=== PATIENT | male | born 1980 | race Two or more races ===

== ENCOUNTER 2022-02-04 21:22 | Emergency (ER) | payer MEDICAID ==
[~2022-02-04] VITALS: Ht 172.7 cm; Wt 77.8 kg
[2022-02-04 21:22] VITALS: BP 142/85
[2022-02-04] MEDS ORDERED: ACYCLOVIR 400 MG TAB PO ONE (22:30)
[2022-02-04] MEDS ORDERED: predniSONE 20 MG TAB PO ONE (22:30)
[2022-02-04 22:51] LABS: Basophils # (auto) 0 10 ^3/uL (0-0.2); Basophils % (auto) 0.5 % (0.0-2.0); Eosinophils # (auto) 0.1 10 ^3/uL (0-0.8); Eosinophils % (auto) 0.9 % (0.0-7.0); Hematocrit 40.6 % (41.0-53.0); Hemoglobin 13.8 g/dL (13.5-17.5); Lymphocytes # (auto) 2.1 10 ^3/uL (0.4-5.4); Lymphocytes % (auto) 37.5 % (10.0-50.0); Mean Corpuscular Hemoglobin 29.8 pg (28.0-32.0); Mean Corpuscular Volume 87.7 fL (80.0-100.0); Monocytes # (auto) 0.6 10 ^3/uL (0-1.3); Neutrophils # (auto) 2.9 10 ^3/uL (1.6-8.6); Neutrophils % (auto) 51.1 % (37.0-80.0); Nucleated Red Blood Cells % 0.3 %; Red Blood Cells 4.63 10^6/uL (4.5-5.90); Red Cell Distribution Width 13.1 % (11.8-14.3); White Blood Cell 5.7 10^3/uL (4.4-10.8)
[2022-02-04] MEDS ORDERED: ACYC-163 PO (23:06)
[2022-02-04] MEDS ORDERED: PRED20TA2 PO (23:06)
[2022-02-05 00:48] LABS: Albumin 3.4 g/dL (3.4-5.0); Bilirubin, Total 0.3 mg/dL (0.2-1.0); CRP High Sensitivity 0.23 mg/dL (< 0.3); Calcium 8.4 mg/dL (8.5-10.1); Magnesium 2.1 mg/dL (1.6-2.6); Potassium 3.6 mmol/L (3.5-5.1); Total Protein 8.6 g/dL (6.4-8.2)
== END 2022-02-05 01:22 | disposition home or self-care (01) ==
LOC: ER 21:36
DX: G51.0 Bell's palsy (principal); Z90.49 Acquired absence of other specified parts of digestive tract
CPT/HCPCS: 36415; 70450; 80053; 83735; 85025; 86141; 99284; J7512

== ENCOUNTER 2023-05-13 10:26 | Emergency (ER) | payer MEDICAID ==
[~2023-05-13] VITALS: Ht 175.3 cm; Wt 76.4 kg
[~2023-05-13 10:26] MED LIST: ACYC1TAB2 PO; PRED20TA2 PO
[2023-05-13] MEDS ORDERED: SODIUM CHLORIDE 0.9% 1,000 ML IV ONE ×2 (11:00→16:15)
[2023-05-13 11:25] LABS: Basophils # (auto) 0 10 ^3/uL (0-0.2); Basophils % (auto) 0.3 % (0.0-2.0); Eosinophils # (auto) 0.1 10 ^3/uL (0-0.8); Eosinophils % (auto) 1.2 % (0.0-7.0); Hematocrit 49.3 % (41.0-53.0); Hemoglobin 17.3 g/dL (13.5-17.5); Lymphocytes % (auto) 37.4 % (10.0-50.0); Mean Corpuscular Hemoglobin 30.9 pg (28.0-32.0); Mean Corpuscular Volume 88.3 fL (80.0-100.0); Monocytes # (auto) 0.9 10 ^3/uL (0-1.3); Monocytes % (auto) 10.6 % (0.0-12.0); Neutrophils # (auto) 4.1 10 ^3/uL (1.6-8.6); Neutrophils % (auto) 50.5 % (37.0-80.0); Nucleated Red Blood Cells % 0.9 %; Red Blood Cells 5.58 10^6/uL (4.5-5.90); Red Cell Distribution Width 13.7 % (11.8-14.3)
[2023-05-13 11:39] LABS: Alanine Aminotransferase 118 U/L (7-40); Albumin 4.6 g/dL (3.2-4.8); Alkaline Phosphatase 85 U/L (46-116); Anion Gap 9 (5-15); Aspartate Aminotransferase 59 U/L (13-40); BUN/Creatinine Ratio 9.6 (10.0-20.0); Bilirubin, Total 0.6 mg/dL (0.2-1.0); Blood Urea Nitrogen 11 mg/dL (9-23); Calcium 9.3 mg/dL (8.5-10.1); Carbon Dioxide 22 mmol/L (20-30); Chloride 105 mmol/L (98-107); Creatine Kinase IFCC 110 U/L (46-171); Glucose 97 mg/dL (74-106); Potassium 3.7 mmol/L (3.5-5.1); Sodium 136 mmol/L (136-145); Total Protein 10.2 g/dL (5.7-8.2)
[2023-05-13] MEDS: PIPERACILLIN-TAZOB 3.375GM 100 ML IV ONE ×2 (12:23→12:29)
[2023-05-13 15:50] VITALS: BP 131/69; PULSE 103; RESP 20; TEMP 98.4; O2SAT 96
[2023-05-13 15:52] LABS: Amphetamine Screen, Urine Pos (NEGATIVE); Urine Bacteria NONE SEEN /hpf (None Seen); Urine Blood 2+ /uL (Negative); Urine Clarity Clear (Clear); Urine Color Yellow (Yellow); Urine Mucus FEW (None Seen); Urine Protein, UAD 1+ (Negative); Urine Urobilinogen Normal (Negative); Urine WBC 2 /hpf (0 - 3)
[2023-05-13 15:53] LABS: Urine Specific Gravity > 1.050 (1.001-1.035)
[2023-05-13 15:54] LABS: Barbiturate Scree,Urine Neg (NEGATIVE); Benzodiazephine Screen, Urine Neg (NEGATIVE); Cannabinoid Screen, Urine Neg (NEGATIVE); Cocaine Screen, Urine Neg (NEGATIVE); Opiate Scree,Urine Neg (NEGATIVE); Phencyclidine Screen, Urine Neg (NEGATIVE)
[2023-05-13] MEDS ORDERED: AUG875T PO (16:10)
== END 2023-05-13 18:35 | disposition left against medical advice (07) ==
LOC: ER 10:26
DX: F15.10 Other stimulant abuse, uncomplicated (principal); R06.02 Shortness of breath; Z79.899 Other long term (current) drug therapy
CPT/HCPCS: 36415; 36600; 71045; 71275; 80053; 80307; 81001; 82550; 82805; 83605; 83735; 83880; 84484; 85025; 85379; 87040; 93005; 96365; 96366; 99285; J7030

== ENCOUNTER 2023-12-23 17:04 | Emergency (ER) | payer MEDICAID ==
[~2023-12-23] VITALS: Ht 172.7 cm; Wt 76.1 kg
[~2023-12-23 17:04] MED LIST changes: +AUG875T PO
[2023-12-23 18:26] VITALS: BP 132/82; TEMP 98.3
[2023-12-23 18:27] VITALS: PULSE 106; RESP 18; O2SAT 99
[2023-12-23 19:57] LABS: Basophils # (auto) 0 10 ^3/uL (0-0.2); Basophils % (auto) 0.4 % (0.0-2.0); Eosinophils # (auto) 0.2 10 ^3/uL (0-0.8); Eosinophils % (auto) 3.9 % (0.0-7.0); Hematocrit 33.7 % (41.0-53.0); Hemoglobin 11.8 g/dL (13.5-17.5); Lymphocytes # (auto) 1.6 10 ^3/uL (0.4-5.4); Lymphocytes % (auto) 32.3 % (10.0-50.0); Mean Corpuscular Hemoglobin 31.4 pg (28.0-32.0); Mean Corpuscular Hgb Conc. 34.9 g/dL (32.0-36.0); Mean Corpuscular Volume 89.9 fL (80.0-100.0); Monocytes # (auto) 0.5 10 ^3/uL (0-1.3); Monocytes % (auto) 9.3 % (0.0-12.0); Neutrophils # (auto) 2.7 10 ^3/uL (1.6-8.6); Neutrophils % (auto) 54.1 % (37.0-80.0); Nucleated Red Blood Cells % 0.1 %; Red Blood Cells 3.75 10^6/uL (4.5-5.90); Red Cell Distribution Width 13.4 % (11.8-14.3)
[2023-12-23 20:12] LABS: Alanine Aminotransferase 25 U/L (7-40); Albumin 3.6 g/dL (3.2-4.8); Alkaline Phosphatase 76 U/L (46-116); Anion Gap 5 (5-15); Aspartate Aminotransferase 24 U/L (13-40); BUN/Creatinine Ratio 14.1 (10.0-20.0); Bilirubin, Total 0.3 mg/dL (0.2-1.0); Blood Urea Nitrogen 10 mg/dL (9-23); Calcium 9.2 mg/dL (8.7-10.4); Carbon Dioxide 27 mmol/L (20-30); Chloride 105 mmol/L (98-107); Glucose 88 mg/dL (74-106); Potassium 3.9 mmol/L (3.5-5.1); Sodium 137 mmol/L (136-145); Total Protein 7.7 g/dL (5.7-8.2)
[2023-12-23] MEDS: IOHEXOL 300 MG/ML 100ML BOTTLE IJ ONE (21:55)
[2023-12-23] MEDS: HYDROcodone-ACET 5/325MG TAB PO ONE (23:58)
== END 2023-12-24 02:18 | disposition left against medical advice (07) ==
LOC: ER 17:04
DX: R59.0 Localized enlarged lymph nodes (principal); Z98.890 Other specified postprocedural states; Z79.899 Other long term (current) drug therapy
CPT/HCPCS: 36415; 70470; 70492; 80053; 85025; 99285; Q9967

== ENCOUNTER 2024-01-30 18:45 | Emergency (ER) | payer MEDICAID ==
[~2024-01-30] VITALS: Ht 170.2 cm; Wt 79.5 kg
[2024-01-30 18:50] VITALS: BP 131/78; PULSE 130; RESP 20; O2SAT 95
== END 2024-01-30 23:11 | disposition left against medical advice (07) ==
LOC: ER 18:45 → EDBD 18:45 → ER 23:11
DX: R10.12 Left upper quadrant pain (principal); R11.2 Nausea with vomiting, unspecified; Z53.21 Procedure and treatment not carried out due to patient leaving prior to being seen by health care provider

== ENCOUNTER 2024-10-11 17:46 | Emergency (ER) | payer MEDICAID ==
[~2024-10-11] VITALS: Ht 172.7 cm; Wt 81.5 kg
[2024-10-11 18:22] VITALS: BP 120/86; PULSE 137; RESP 18; TEMP 98; O2SAT 96
== END 2024-10-11 20:28 | disposition left against medical advice (07) ==
LOC: ER 17:46
DX: R51.9 Headache, unspecified (principal); Z53.21 Procedure and treatment not carried out due to patient leaving prior to being seen by health care provider

== ENCOUNTER 2024-10-13 09:56 | Inpatient (IN) | payer MEDICAID ==
[2024-10-13] VITALS (8 sets, daily range): BP systolic 104–132; BP diastolic 68–75; PULSE 80–102; RESP 18–22; TEMP 97.5–98.1; O2SAT 93–99
[~2024-10-13] VITALS: Ht 172.7 cm; Wt 88.1 kg
--- NOTE | 2024-10-13 10:21 | ED.PDOC ---
History of Present Illness HPI Comments 44 year old male was BIBA with a PMHx of Burkitt Lymphoma and a "mass in a lung" associated to the c/c of SOB. Pt states that his SOB started approx 10x days ago with a fever, & 10/10 pressure ROY with no alleviating factors at this time. Pt notes that his vision is blurry in his R eye. Pt Denies coughing, N/V/D, Chest pain, ABD pain or other associated symptoms, modifiers, or recent injuries or sick contact that this time. Chief Complaint: Headache Time Seen by MD: 10:15 Primary Care Provider: ASHOK Reviewed Notes: Nurses Notes, Back Shoe Operator Notes, Medications, Allergies Allergies: Coded Allergies: NO KNOWN ALLERGIES (Unverified , 02/04/22) Home Meds Active Scripts Amoxicillin & Pot Clavulanate (AUGMENTIN TABLET) 875 Mg Tb, 875 MG PO BID for 7 Days, #14 TAB Prov:PAXTON HAMM DO 05/13/23 Acyclovir (Acyclovir) 400 Mg Tab, 400 MG PO 5XD for 7 Days, #35 TAB Prov:PAXTON HAMM DO 02/04/22 Prednisone (Prednisone) 20 Mg Tab, 40 MG PO BID for 7 Days, #14 MG Prov:PAXTON HAMM DO 02/04/22 Information Source: Patient, Emergency Med Personnel Mode of Arrival: EMS Severity: Moderate Timing: Days Duration: Since onset, Days Prehospital treatment: Oxygen Past Medical History PAST MEDICAL HISTORY: Cancer Past Medical History (Other): Burkis Lynphoma Surgical History: Appendectomy Family History Family History: Reviewed,noncontributory to illness Social History Smoker: Non-Smoker Alcohol: Denies ETOH Use Drugs: Denies Drug Use Lives In: Home Constitutional: reports: chills, fever; denies: diaphoresis, fatigue, malaise, sweats, weakness, others EENTM: reports: blurred vision (right eye); denies: double vision, ear bleeding, ear discharge, ear drainage, ear pain, ear ringing, eye pain, eye redness, hearing loss, mouth pain, mouth swelling, nasal discharge, nose bleeding, nose congestion, nose pain, photophobia, tearing, throat pain, throat swelling, voice changes, others Respiratory: reports: SOB at rest, shortness of breath; denies: cough, hemoptysis, orthopnea, SOB with excertion, stridor, wheezing, others Cardiovascular: denies: chest pain, dizzy spells, diaphoresis, Dyspnea on exertion, edema, irregular heart beat, left arm pain, lightheadedness, palpitations, PND, syncope, others Gastrointestinal: denies: abdomen distended, abdominal pain, blood streaked bowels, constipated, diarrhea, dysphagia, difficulty swallowing, hematemesis, melena, nausea, poor appetite, poor fluid intake, rectal bleeding, rectal pain, vomiting, others Genitourinary: denies: burning, dysuria, flank pain, frequency, hematuria, incontinence, penile discharge, penile sore, pain, testicle pain, testicle swelling, urgency, others Neurological: denies: dizziness, fainting, headache, left sided numbness, left sided weakness, numbness, paresthesia, pre-existing deficit, right sided numbness, right sided weakness, seizure, speech problems, tingling, tremors, weakness, others Musculoskeletal: denies: back pain, gout, joint pain, joint swelling, muscle pain, muscle stiffness, neck pain, others Integumetry: denies: bruises, change in color, change in hair/nails, dryness, laceration, lesions, lumps, rash, wounds, others Allergic/Immunocompromised: denies: Difficulty Healing, Frequent Infections, Hives, Itching, others Hematologic/Lymphatic: denies: anemia, blood clots, easy bleeding, easy bruising, swollen glands, others Endocrine: denies: excessive hunger, excessive sweating, excessive thirst, excessive urination, flushing, intolerance to cold, intolerance to heat, unexplained weight gain, unexplained weight loss, others Psychiatric: denies: anxiety, bipolar disorder, depression, hopeless, panic d isorder, schizophrenia, sleepless, suicidal, others All Other Systems: Reviewed and Negative Physical Exam General Appearance: Moderate Distress HEENT: Normal ENT Inspection Neck: Full Range of Motion, Normal Inspection Respiratory: Chest Non-Tender Cardiovascular: No Edema Breast Exam: Deferred Gastrointestinal: Non Tender, Normal Bowel Sounds, Soft Genitalia: Deferred Pelvic: Deferred Rectal: Deferred Extremities: No calf tenderness, Non-tender, No pedal edema Musculoskeletal : Apperance: Normal Neurologic: Alert, Normal Affect, Normal Mood Cerebellar Function: Normal Reflexes: Normal Skin: Dry, Normal Color, Warm Lymphatic: No Adenopathy Was a procedure done? Was a procedure done?: No Differential Dx Considerations may include: Pneumonia, viral syndrome, electrolyte abnormality, infectious etiology X-Ray, Labs, Meds, VS Vital Signs Date Time Temp Pulse Resp B/P (MAP) Pulse Ox O2 Delivery O2 Flow Rate FiO2 10/13/24 10:27 98.7 121 20 147/78 (101) 94 98.7 10/13/24 10:03 123 10/13/24 09:56 101.0 117 18 120/76 (91) 96 101.0 Lab Test 10/13/24 10:18 Range/Units White Blood Count 8.8 4.4-10.8 10^3/uL Red Blood Count 4.68 4.5-5.90 10^6/uL Hemoglobin 14.1 13.5-17.5 g/dL Hematocrit 41.0 41.0-53.0 % Mean Corpuscular Volume 87.7 80.0-100.0 fL Mean Corpuscular Hemoglobin 30.2 28.0-32.0 pg Mean Corpuscular Hemoglobin Concent 34.5 32.0-36.0 g/dL Red Cell Distribution Width 17.7 H 11.8-14.3 % Platelet Count 297 140-450 10^3/uL Mean Platelet Volume 7.2 6.9-10.8 fL Neutrophils (%) (Auto) 77.7 37.0-80.0 % Lymphocytes (%) (Auto) 14.9 10.0-50.0 % Monocytes (%) (Auto) 6.9 0.0-12.0 % Eosinophils (%) (Auto) 0.2 0.0-7.0 % Basophils (%) (Auto) 0.3 0.0-2.0 % Neutrophils # (Auto) 6.8 1.6-8.6 10 ^3/uL Lymphocytes # (Auto) 1.3 0.4-5.4 10 ^3/uL Monocytes # (Auto) 0.6 0-1.3 10 ^3/uL Eosinophils # (Auto) 0 0-0.8 10 ^3/uL Basophils # (Auto) 0 0-0.2 10 ^3/uL Nucleated Red Blood Cells 0.1 % Prothrombin Time 12.4 H 9.3-11.8 sec Prothrombin Time INR 1.19 H 0.9-1.15 Activated Partial Thromboplast Time 36.1 H 24.5-34.5 SEC Sodium Level 134 L 136-145 mmol/L Potassium Level 4.1 3.5-5.1 mmol/L Chloride Level 96 L 98-107 mmol/L Carbon Dioxide Level 28 20-31 mmol/L Anion Gap 10 5-15 Blood Urea Nitrogen 10 9-23 mg/dL Creatinine 0.88 0.700-1.30 mg/dL Glomerular Filtration Rate Calc 107 >90 mL/min BUN/Creatinine Ratio 11.4 10.0-20.0 Serum Glucose 115 H 74-106 mg/dL Lactic Acid Level 2.0 0.4-2.0 mmol/L Calcium Level 9.3 8.7-10.4 mg/dL Total Bilirubin 0.7 0.2-1.0 mg/dL Aspartate Amino Transferase (AST) < 8 L 13-40 U/L Alanine Aminotransferase (ALT) < 9 7-40 U/L Alkaline Phosphatase 120 H 46-116 U/L Total Protein 7.9 5.7-8.2 g/dL Albumin 4.9 H 3.2-4.8 g/dL Current Medications Medications (Trade) Dose Ordered Sig/Annalisa Route Start Time Stop Time Status Last Admin Sodium Chloride 1,000 ml @ 1,000 mls/hr Q1H ONCE IV 10/13/24 10:15 10/13/24 11:14 DC 10/13/24 10:25 Cefepime HCl 50 ml @ 50 mls/hr ONCE ONCE IV 10/13/24 10:30 10/13/24 11:29 DC 10/13/24 10:42 Vancomycin HCl 200 ml @ 200 mls/hr ONCE ONCE IV 10/13/24 12:00 10/13/24 12:59 DC 10/13/24 12:14 ORDERING PHYSICIAN: JYOTSNA GUTHRIE MD PROCEDURE(s): CXRP - CHEST PORTABLE REASON: sob ORDER NUMBER(s): [id number], ACCESSION NUMBER(s): [id number] CHEST RADIOGRAPH Indication: sob Technique: Single frontal view of the chest was obtained COMPARISON: XY CHEST PORTABLE on DOS: 05/13/23 FINDINGS: Lines and Tubes: None Lungs: Left mid and lower lung airspace disease. Pleura: No effusion. No pneumothorax. Cardiomediastinal contours: Unremarkable Bones: Unremarkable IMPRESSION: Left mid and lower lung airspace disease. Time of 1ST Reevaluation: 10:46 Reevaluation 1ST: Unchanged Patient Education/Counseling: Diagnosis, Treatment Family Education/Counseling: No Family Present Sepsis Sepsis Reasesment Focused Exam Orders: Laboratory Tests 10/13/24 10:18: Lactic Acid Level 2.0 Departure 1 Departure Time of Disposition: 13:22 (Patient presents with left lower lobe pneumonia. We will admit patient for further workup and expert consultation.) Impression: Primary Impression: Left lower lobe pneumonia Qualified Codes: J18.9 - Pneumonia, unspecified organism Additional Impression: Shortness of breath Disposition: ADMITTED INPATIENT Admit to: Med Surg Condition: Serious Critical Care Note Critical Care Time?: Yes Critical care comment: Worsening shortness of breath Authorized and Performed by: Jyotsna Guthrie MD Total critical care time: Approximately 34 minutes Due to a high probability of clinically significant, life threatening deterioration, the patient required my highest level of preparedness to intervene emergently and I personally spent this critical care time directly and personally managing the patient. This critical care time included obtaining a history; examining the patient; pulse oximetry; ordering and review of studies; arranging urgent treatment with development of a management plan; evaluation of patient's response to treatment; frequent reassessment; and, discussions with other providers. This critical care time was performed to assess and manage the high probability of imminent, life-threatening deterioration that could result in multi-organ failure. It was exclusive of separately billable procedures and treating other patients and teaching time. Please see my other sections and the rest of the note for further information on patient assessment and treatment. Stability Stability form required: No I personally scribed for JYOTSNA GUTHRIE MD ([email or web address]) on 10/13/24 at 10:21. Electronically submitted by Anselmo Lubin ([email or web address]). I personally scribed for JYOTSNA GUTHRIE MD ([email or web address]) on 10/13/24 at 10:50. Electronically submitted by Seth Chen ([email or web address]). I personally scribed for JYOTSNA GUTHRIE MD ([email or web address]) on 10/13/24 at 12:29. Electronically submitted by Anselmo Lubin ([email or web address]). JYOTSNA GUTHRIE MD October 13, 2024 10:21
[2024-10-13] MEDS: SODIUM CHLORIDE 0.9% 1,000 ML IV ONE ×2 (10:25→13:49)
--- NOTE | 2024-10-13 10:41 | DVH ---
CHEST RADIOGRAPH Indication: sob Technique: Single frontal view of the chest was obtained COMPARISON: XY CHEST PORTABLE on DOS: 05/13/23 FINDINGS: Lines and Tubes: None Lungs: Left mid and lower lung airspace disease. Pleura: No effusion. No pneumothorax. Cardiomediastinal contours: Unremarkable Bones: Unremarkable IMPRESSION: Left mid and lower lung airspace disease.
[2024-10-13] MEDS: CEFEPIME 1GM/ 50ML 50 ML IV ONE (10:42)
[2024-10-13 11:00] LABS: Basophils # (auto) 0 10 ^3/uL (0-0.2); Basophils % (auto) 0.3 % (0.0-2.0); Eosinophils # (auto) 0 10 ^3/uL (0-0.8); Eosinophils % (auto) 0.2 % (0.0-7.0); Hemoglobin 14.1 g/dL (13.5-17.5); Lymphocytes # (auto) 1.3 10 ^3/uL (0.4-5.4); Lymphocytes % (auto) 14.9 % (10.0-50.0); Mean Corpuscular Hemoglobin 30.2 pg (28.0-32.0); Mean Corpuscular Hgb Conc. 34.5 g/dL (32.0-36.0); Mean Corpuscular Volume 87.7 fL (80.0-100.0); Monocytes # (auto) 0.6 10 ^3/uL (0-1.3); Monocytes % (auto) 6.9 % (0.0-12.0); Neutrophils # (auto) 6.8 10 ^3/uL (1.6-8.6); Neutrophils % (auto) 77.7 % (37.0-80.0); Nucleated Red Blood Cells % 0.1 %; Platelet Count (auto) 297 10^3/uL (140-450); Red Blood Cells 4.68 10^6/uL (4.5-5.90); Red Cell Distribution Width 17.7 % (11.8-14.3); White Blood Cell 8.8 10^3/uL (4.4-10.8)
[2024-10-13 11:05] LABS: Anion Gap 10 (5-15); BUN/Creatinine Ratio 11.4 (10.0-20.0); Bilirubin, Total 0.7 mg/dL (0.2-1.0); Blood Urea Nitrogen 10 mg/dL (9-23); Calcium 9.3 mg/dL (8.7-10.4); Carbon Dioxide 28 mmol/L (20-31); Potassium 4.1 mmol/L (3.5-5.1); Total Protein 7.9 g/dL (5.7-8.2)
[2024-10-13 11:11] LABS: Alanine Aminotransferase < 9 U/L (7-40); Albumin 4.9 g/dL (3.2-4.8); Alkaline Phosphatase 120 U/L (46-116); Aspartate Aminotransferase < 8 U/L (13-40); Chloride 96 mmol/L (98-107); Glucose 115 mg/dL (74-106); Sodium 134 mmol/L (136-145)
[2024-10-13 11:19] LABS: INR 1.19 (0.9-1.15); Partial Thromboplastin Time 36.1 SEC (24.5-34.5); Prothrombin Time 12.4 sec (9.3-11.8)
[2024-10-13] MEDS: VANCOMYCIN 1GM/200ML PM 200 ML IV ONE (12:14)
[2024-10-13] MEDS: KETOROLAC TROMETH 30 MG/ML 1ML VIAL IV ONE (14:41)
[2024-10-13] MEDS ORDERED: ONDANSETRON HCL 4 MG/2 ML VIAL IV PRN (15:00)
[2024-10-13] MEDS ORDERED: ACETAMINOPHEN 325 MG TAB PO PRN (15:00)
[2024-10-13] MEDS ORDERED: NITROGLYCERIN 0.4 MG SL TAB SL PRN (15:00)
[2024-10-13] MEDS ORDERED: DOCUSATE SOD 100 MG CAP PO PRN (15:00)
[2024-10-13] MEDS ORDERED: MORPHINE SULFATE INJ 2 MG/ml SYRG IV PRN (15:00)
--- NOTE | 2024-10-13 16:06 | DVHHP2 ---
History of Present Illness Reason for Visit: Headache History of Present Illness Kaiser Bliss is a 44-year-old male with past medical history of lymphoma and a lung mass, who came to the hospital today for a headache. Patient states he has had a headache for about 1 week. He also states that he has a had a cough with green phlegm for about a weeks as well. Patient states he follows with [facility] for his oncology care. He states he completed a 6 week course of treatment. That it didn't woke as well as they hoped and he has a follow up November 03 for a PET Scan and more testing. He states he was getting frequent lumbar punctures, and that his last LP was in June or July. Heme/Onc: Cancer (lymphoma) Past Surgical History: Appendectomy Smoke: No ALCOHOL: none Drugs: None Lives: Alone Review of Systems Constitutional: Yes: Other (Headache); No: Fever, Chills, Sweats, Weakness, Malaise Eyes: No: Pain, Vision change, Conjunctivae inflammation, Eyelid inflammation, Other, Redness ENT: No: Ear pain, Ear discharge, Nose pain, Nose discharge, Nose congestion, Mouth pain, Mouth swelling, Throat pain, Throat swelling, Other Respiratory: Cough, Shortness of breath, Sputum; No: Dry, SOB with excertion, Wheezing, Hemoptysis, Pleuritic Pain, Wheezing, Other Cardiovascular: No: Chest Pain, Palpitations, Orthopnea, Paroxysmal Noc. Dyspnea, Edema, Lt Headedness, Other Gastrointestinal: No: Nausea, Vomiting, Abdominal Pain, Diarrhea, Constipation, Melena, Hematochezia, Other Genitourinary: No Dysuria, No Frequency, No Incontinence, No Hematuria, No Retention, No Other Musculoskeletal: No: other, neck pain, shoulder pain, arm pain, back pain, hand pain, leg pain, foot pain Skin: No: Rash, Lesions, Jaundice, Bruising, Other Neurological: No: Weakness, Numbness, Incoordination, Change in speech, Co nfusion, Seizures, Other Allergies: Coded Allergies: NO KNOWN ALLERGIES (Unverified , 02/04/22) Medications Current Medications Medications Dose Ordered Sig/Annalisa Route Start Time Stop Time Status Last Admin Dose Admin Cefepime HCl 50 ml @ 12.5 mls/hr Q8H IV 10/13/24 18:00 Exam Vital Signs Vital Signs Date Time Temp Pulse Resp B/P (MAP) Pulse Ox O2 Delivery O2 Flow Rate FiO2 10/13/24 13:53 101 29 114/73 (87) 91 10/13/24 13:51 Nasal Cannula* 2 28 10/13/24 10:27 98.7 98.7 General Appearance: Alert, Oriented X3, Cooperative, moderate distress HEENT: Atraumatic, PERRLA Respiratory: Other (diminshed breath sound, rales) Cardiovascular: Normal S1, Normal S2, Other (ST) Abdominal: Normal bowel sounds, Soft, No tenderness Extremities: No clubbing, No cyanosis, No edema, No tenderness/swelling Skin: No rashes, No breakdown, No significant lesion Neuro: Normal gait, Normal speech, Strength at 5/5 X4 ext, Normal tone Psych/Mental Status: Mental status NL, Mood NL Labs/Xrays Labs Test 10/13/24 10:18 Range/Units White Blood Count 8.8 4.4-10.8 10^3/uL Red Blood Count 4.68 4.5-5.90 10^6/uL Hemoglobin 14.1 13.5-17.5 g/dL Hematocrit 41.0 41.0-53.0 % Mean Corpuscular Volume 87.7 80.0-100.0 fL Mean Corpuscular Hemoglobin 30.2 28.0-32.0 pg Mean Corpuscular Hemoglobin Concent 34.5 32.0-36.0 g/dL Red Cell Distribution Width 17.7 H 11.8-14.3 % Platelet Count 297 140-450 10^3/uL Mean Platelet Volume 7.2 6.9-10.8 fL Neutrophils (%) (Auto) 77.7 37.0-80.0 % Lymphocytes (%) (Auto) 14.9 10.0-50.0 % Monocytes (%) (Auto) 6.9 0.0-12.0 % Eosinophils (%) (Auto) 0.2 0.0-7.0 % Basophils (%) (Auto) 0.3 0.0-2.0 % Neutrophils # (Auto) 6.8 1.6-8.6 10 ^3/uL Lymphocytes # (Auto) 1.3 0.4-5.4 10 ^3/uL Monocytes # (Auto) 0.6 0-1.3 10 ^3/uL Eosinophils # (Auto) 0 0-0.8 10 ^3/uL Basophils # (Auto) 0 0-0.2 10 ^3/uL Nucleated Red Blood Cells 0.1 % Prothrombin Time 12.4 H 9.3-11.8 sec Prothrombin Time INR 1.19 H 0.9-1.15 Activated Partial Thromboplast Time 36.1 H 24.5-34.5 SEC Sodium Level 134 L 136-145 mmol/L Potassium Level 4.1 3.5-5.1 mmol/L Chloride Level 96 L 98-107 mmol/L Carbon Dioxide Level 28 20-31 mmol/L Anion Gap 10 5-15 Blood Urea Nitrogen 10 9-23 mg/dL Creatinine 0.88 0.700-1.30 mg/dL Glomerular Filtration Rate Calc 107 >90 mL/min BUN/Creatinine Ratio 11.4 10.0-20.0 Serum Glucose 115 H 74-106 mg/dL Lactic Acid Level 2.0 0.4-2.0 mmol/L Calcium Level 9.3 8.7-10.4 mg/dL Total Bilirubin 0.7 0.2-1.0 mg/dL Aspartate Amino Transferase (AST) < 8 L 13-40 U/L Alanine Aminotransferase (ALT) < 9 7-40 U/L Alkaline Phosphatase 120 H 46-116 U/L Total Protein 7.9 5.7-8.2 g/dL Albumin 4.9 H 3.2-4.8 g/dL CHEST RADIOGRAPH FINDINGS: Lines and Tubes: None Lungs: Left mid and lower lung airspace disease. Pleura: No effusion. No pneumothorax. Cardiomediastinal contours: Unremarkable Bones: Unremarkable IMPRESSION: Left mid and lower lung airspace disease. 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 Procedure Category Date Status Time Admit ADMIT 10/13/24 Transmitted 14:52 Code Status CODE 10/13/24 Transmitted 14:52 Hydrocodone-Acet PHA 10/13/24 Transmitted 5/325mg Tab ([place] 15:00 Ondansetron Hcl PHA 10/13/24 Transmitted (Zofran) 15:00 Docusate Sodium [facility] 10/13/24 Transmitted Capsule (Colace 15:00 Complete Blood Count LAB 10/14/24 Verified 04:00 Comprehensive LAB 10/14/24 Verified Metabolic Panel 04:00 Condition: Serious [facility] 10/13/24 Transmitted 14:52 Acetaminophen Tablet [facility] 10/13/24 Transmitted (Tylenol Tablet) 15:00 Nitroglycerin [facility] 10/13/24 Transmitted Sublingual (Ntrostat 15:00 Morphine Sulfate [facility] 10/13/24 Transmitted Injection 15:00 Stat Ekg For Chest [facility] 10/13/24 Transmitted Pain 14:52 Notify Of Changes [facility] 10/13/24 Transmitted From Base 14:52 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
[2024-10-13] MEDS ORDERED: KETOROLAC TROMETH 30 MG/ML 1ML VIAL IV PRN (17:15)
[2024-10-13] MEDS ORDERED: DOCU-265 PO (17:25)
[2024-10-13] MEDS ORDERED: GABA-1250 PO (17:25)
[2024-10-13] MEDS ORDERED: APIX5TAB PO (17:25)
[2024-10-13] MEDS ORDERED: PANT40T PO (17:25)
[2024-10-13] MEDS: CEFEPIME 1GM/ 50ML 50 ML IV SCH (17:29)
[2024-10-13] MEDS: ALBUTEROL SULF 2.5 MG/0.5ML(0.5%) NEB SOLN NEB SCH (19:06)
[2024-10-13] MEDS: IPRATROPIUM BROM 0.5 MG/2.5ML INH SOL ONE (19:06)
[2024-10-13] MEDS: ALBUTEROL SULF 2.5 MG/0.5ML(0.5%) NEB SOLN ONE (19:06)
[2024-10-13] MEDS: IPRATROPIUM BROM 0.5 MG/2.5ML INH SOL NEB SCH (19:06)
[2024-10-13] MEDS: APIXABAN 5 MG TAB PO SCH (21:14)
[2024-10-13] MEDS: GABAPENTIN 300 MG CAP PO SCH (21:14)
[2024-10-13] MEDS ORDERED: VANCOMYCIN 1GM/200ML PM 200 ML IV SCH (22:00)
[2024-10-14] VITALS (15 sets, daily range): BP systolic 105–125; BP diastolic 63–96; PULSE 80–109; RESP 17–20; TEMP 97.5–98.3; O2SAT 95–100
[2024-10-14 02:32] LABS: Urine Bacteria None Seen /hpf (None Seen)
[2024-10-14 03:09] LABS: Urine Blood Negative /uL (Negative); Urine Clarity Clear (Clear); Urine Color Yellow (Yellow); Urine Hyaline Cast FEW /lpf (0 - 2); Urine Mucus FEW (None Seen); Urine Protein, UAD 1+ (Negative); Urine Specific Gravity 1.029 (1.001-1.035); Urine Squamous Epithelial Cell FEW /hpf (<5); Urine Urobilinogen 2 mg/dL (Negative); Urine WBC 3 /HPF (0-3); Urine pH 6.5 (5.0-9.0)
[2024-10-14 03:30] LABS: Opiate Scree,Urine Neg (NEGATIVE)
[2024-10-14 03:31] LABS: Amphetamine Screen, Urine Pos (NEGATIVE); Barbiturate Scree,Urine Neg (NEGATIVE); Benzodiazephine Screen, Urine Neg (NEGATIVE); Cannabinoid Screen, Urine Neg (NEGATIVE); Cocaine Screen, Urine Neg (NEGATIVE); Phencyclidine Screen, Urine Neg (NEGATIVE)
[2024-10-14 06:08] LABS: Basophils # (auto) 0 10 ^3/uL (0-0.2); Basophils % (auto) 0.3 % (0.0-2.0); Eosinophils # (auto) 0.1 10 ^3/uL (0-0.8); Eosinophils % (auto) 1.5 % (0.0-7.0); Hematocrit 36.6 % (41.0-53.0); Hemoglobin 12.5 g/dL (13.5-17.5); Lymphocytes # (auto) 0.5 10 ^3/uL (0.4-5.4); Lymphocytes % (auto) 9.1 % (10.0-50.0); Mean Corpuscular Hemoglobin 30.2 pg (28.0-32.0); Mean Corpuscular Volume 88.8 fL (80.0-100.0); Monocytes # (auto) 0.4 10 ^3/uL (0-1.3); Monocytes % (auto) 6.6 % (0.0-12.0); Neutrophils # (auto) 4.9 10 ^3/uL (1.6-8.6); Neutrophils % (auto) 82.5 % (37.0-80.0); Platelet Count (auto) 264 10^3/uL (140-450); Red Blood Cells 4.12 10^6/uL (4.5-5.90); Red Cell Distribution Width 17.6 % (11.8-14.3); White Blood Cell 5.9 10^3/uL (4.4-10.8)
[2024-10-14 06:19] LABS: Alkaline Phosphatase 99 U/L (46-116); Anion Gap 8 (5-15); BUN/Creatinine Ratio 18.7 (10.0-20.0); Blood Urea Nitrogen 14 mg/dL (9-23); Calcium 9.4 mg/dL (8.7-10.4); Carbon Dioxide 27 mmol/L (20-31); Chloride 107 mmol/L (98-107); Glucose 104 mg/dL (74-106); Potassium 4.1 mmol/L (3.5-5.1); Sodium 142 mmol/L (136-145); Total Protein 6.4 g/dL (5.7-8.2)
[2024-10-14 06:25] LABS: Alanine Aminotransferase < 9 U/L (7-40); Aspartate Aminotransferase 8 U/L (13-40); Bilirubin, Total 0.2 mg/dL (0.2-1.0)
[2024-10-14] MEDS: DOCUSATE SOD 100 MG CAP PO SCH (08:59)
[2024-10-14] MEDS: HYDROcodone-ACET 5/325MG TAB PO PRN (09:01)
[2024-10-14] MEDS: PANTOPRAZOLE 40 MG TAB PO SCH (09:04)
--- NOTE | 2024-10-14 13:58 | DVH ---
EXAM: CT HEAD WITHOUT CONTRAST INDICATION: headache TECHNIQUE: CT of the head without intravenous contrast. Radiation Dose Information: CT Dose: CTDI volume is 53.38 mGy. Dose-length product is 855.82 mGy*cm The dose indicators for CT are the volume Computed Tomography (CT) Dose Index (CTDIvol) and the Dose Length Product (DLP), and are measured in units of mGy and mGy-cm, respectively. These indicators are not patient dose, but values generated from the CT scanner acquisition factors. The report includes radiation exposure data for exposures received during this examination. COMPARISON: HEAD WITHOUT CONTRAST on DOS: 02/04/22 FINDINGS: There is no evidence of acute intracranial hemorrhage, extra-axial collection, mass effect, midline s hift, herniation or hydrocephalus. The ventricles, sulci and cisterns are age appropriate. The tran-white differentiation is intact. Patchy periventricular and subcortical white matter hypoattenuation is nonspecific but may be related to small vessel ischemic disease. Right maxillary sinus opacification. Bilateral ethmoid sinus opacification. Opacification of the rig ht and left sphenoid sinuses. Opacification of the right frontal sinus. The mastoid air cells are fernandez ar. The surrounding soft tissues and osseous structures are unremarkable. IMPRESSION: 1. No acute intracranial hemorrhage 2. Right maxillary bilateral ethmoid, bilateral sphenoid, right frontal sinusitis. 3. No territorial ischemia.
[2024-10-14] MEDS: MORPHINE SULF 15mg ER tab PO ONE (14:31)
[2024-10-14] MEDS ORDERED: VANCOMYCIN PER PHARMACY 0 MG IV SCH (14:45)
[2024-10-14] MEDS: VANCOMYCIN 750mg/150ml 150 ML IV SCH (15:26)
--- NOTE | 2024-10-14 16:20 | DVHINCON2 ---
Date of service: October 14, [address] 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 Was seen in the emergency room where chest x-ray findings were consistent with pneumonia and the patient was admitted for IV antibiotics. Pulmonology was consulted to assist in management. Home Meds Reported Medications Docusate Sodium (Docusate Sodium) 100 Mg Cap, 1 CAP PO DAILY 10/13/24 Pantoprazole Sodium Sesquihydr (Pantoprazole Sodium) 40 Mg Tab, 1 TAB PO DAILY 10/13/24 Apixaban Base (ELIQUIS) 5 Mg Tab, 1 TAB PO BID 10/13/24 Gabapentin (Gabapentin) 300 Mg Cap, 3 TAB PO TID 10/13/24 Discontinued Scripts Amoxicillin & Pot Clavulanate (AUGMENTIN TABLET) 875 Mg Tb, 875 MG PO BID for 7 Days, #14 TAB Prov:PAXTON HAMM DO 05/13/23 Acyclovir (Acyclovir) 400 Mg Tab, 400 MG PO 5XD for 7 Days, #35 TAB Prov:PAXTON HAMM DO 02/04/22 Prednisone (Prednisone) 20 Mg Tab, 40 MG PO BID for 7 Days, #14 MG Prov:PAXTON HAMM DO 02/04/22 Past Medical History Cardiac: No pertinent Hx Pulmonary: No pertinent Hx Central Nervous System: No pertinent Hx GI: No pertinent Hx Hemotology/Oncology: Cancer (B-cell lymphoma) Hepatobiliary: No pertinent Hx Psychiatric: No pertinent Hx Musculoskeletal: No pertinent Hx Rheumotologic: No pertinent Hx Infectious Disease: No peritnent Hx ENT: No pertinent Hx Renal/: No pertinent Hx Endocrine: No pertinent Hx Dermatology: No pertinent Hx Past Surgical History: No pertinent Hx Family History: No pertinent Hx Patient Family History: Patient reports no known family medical history. Smoker: No Hx (Negative) Alocohol: None Drugs: None Lives with: With family Domestic Violence: Neg Review of Systems Constitutional: No symptom reported Ears, Nose, & Throat: No symptom reported Eyes: No symptom reported Pulmonary/Respiratory: Dyspnea, Cough Cardiovascular: No symptom reported Gastrointestinal: No symptom reported Genitourinary: No symptom reported Musculoskeletal: No symptom reported Skin: No symptom reported Psychiatric: No symptom reported Endocrine: No symptom reported Hemotologic/Lymphatic: No symptom reported H&P Exam Vital Signs Vital Signs Date Time Temp Pulse Resp B/P (MAP) Pulse Ox O2 Delivery O2 Flow Rate FiO2 10/14/24 13:00 97.8 85 20 124/63 (83) 97 97.8 10/14/24 12:06 Nasal Cannula 2.0 10/14/24 12:06 28 General Appeara: Well developed, Well nourished, Normal Appearance Head Exam: Normal inspection Neck Exam: Normal inspection, Non-tender, Normal alignment Eye Exam: bilateral eye Normal inspection, bilateral eye PERRL, bilateral eye EOMI Ear Exam: bilateral ear Auricle normal, bilateral ear Canal normal, bilateral ear TM normal Nasal Exam: Normal inspection Mouth: Normal Inspection Pulmonary/Respiratory: Decreased breath sounds Cardiovascular/Chest: Normal inspection, Regular rate, Normal Rhythm Peripheral Pulses: 4+ Radial (R), 4+ Radial (L), 4+ Brachial (R), 4+ Brachial (L) Abdominal Exam: Normal bowel sounds Labs/Xrays Labs Test 10/14/24 04:51 10/14/24 02:18 10/13/24 10:18 Range/Units White Blood Count 5.9 # 4.4-10.8 10^3/uL Red Blood Count 4.12 L 4.5-5.90 10^6/uL Hemoglobin 12.5 L 13.5-17.5 g/dL Hematocrit 36.6 #L 41.0-53.0 % Mean Corpuscular Volume 88.8 80.0-100.0 fL Mean Corpuscular Hemoglobin 30.2 28.0-32.0 pg Mean Corpuscular Hemoglobin Concent 34.0 32.0-36.0 g/dL Red Cell Distribution Width 17.6 H 11.8-14.3 % Platelet Count 264 140-450 10^3/uL Mean Platelet Volume 7.4 6.9-10.8 fL Neutrophils (%) (Auto) 82.5 H 37.0-80.0 % Lymphocytes (%) (Auto) 9.1 L 10.0-50.0 % Monocytes (%) (Auto) 6.6 0.0-12.0 % Eosinophils (%) (Auto) 1.5 0.0-7.0 % Basophils (%) (Auto) 0.3 0.0-2.0 % Neutrophils # (Auto) 4.9 1.6-8.6 10 ^3/uL Lymphocytes # (Auto) 0.5 0.4-5.4 10 ^3/uL Monocytes # (Auto) 0.4 0-1.3 10 ^3/uL Eosinophils # (Auto) 0.1 0-0.8 10 ^3/uL Basophils # (Auto) 0 0-0.2 10 ^3/uL Nucleated Red Blood Cells 0.0 % Sodium Level 142 # 136-145 mmol/L Potassium Level 4.1 3.5-5.1 mmol/L Chloride Level 107 # 98-107 mmol/L Carbon Dioxide Level 27 20-31 mmol/L Anion Gap 8 5-15 Blood Urea Nitrogen 14 9-23 mg/dL Creatinine 0.75 0.700-1.30 mg/dL Glomerular Filtration Rate Calc 113 >90 mL/min BUN/Creatinine Ratio 18.7 10.0-20.0 Serum Glucose 104 74-106 mg/dL Calcium Level 9.4 8.7-10.4 mg/dL Total Bilirubin 0.2 0.2-1.0 mg/dL Aspartate Amino Transferase (AST) 8 L 13-40 U/L Alanine Aminotransferase (ALT) < 9 7-40 U/L Alkaline Phosphatase 99 46-116 U/L Total Protein 6.4 5.7-8.2 g/dL Albumin 4.0 3.2-4.8 g/dL Urine Color Yellow Yellow Urine Clarity Clear Clear Urine pH 6.5 5.0-9.0 Urine Specific [place] 1.029 1.001-1.035 Urine Protein 1+ H Negative Urine Ketones Negative Negative Urine Blood Negative Negative /uL Urine Nitrite Negative Negative Urine Bilirubin Negative Negative Urine Urobilinogen 2 H Negative mg/dL Urine Leukocyte Esterase Negative Negative /uL Urine RBC 31 0 - 3 /hpf Urine Microscopic WBC 3 0-3 /HPF Urine Squamous Epithelial Cells Few <5 /hpf Urine Bacteria None seen None Seen /hpf Urine Hyaline Casts Few 0 - 2 /lpf Urine Mucus Few None Seen Urine Glucose Normal Normal mg/dL Urine Opiates Screen Neg NEGATIVE Urine Fentanyl Screen Neg NEGATIVE Urine Barbiturates Screen Neg NEGATIVE Urine Phencyclidine Screen Neg NEGATIVE Urine Amphetamines Screen Pos NEGATIVE Urine Benzodiazepines Screen Neg NEGATIVE Urine Cocaine Screen Neg NEGATIVE Urine Cannabinoids Screen Neg NEGATIVE Prothrombin Time 12.4 H 9.3-11.8 sec Prothrombin Time INR 1.19 H 0.9-1.15 Activated Partial Thromboplast Time 36.1 H 24.5-34.5 SEC Lactic Acid Level 2.0 0.4-2.0 mmol/L Microbiology Date/Time Source Procedure Growth Status 10/13/24 10:33 Blood Blood Culture - Preliminary NO GROWTH AFTER 24 HOURS OF INCUBATION. Resulted Assessment/Plan Plan Impression Acute hypoxemic respiratory failure Hx of B-cell lymphoma Pneumonia Atelectasis Patient seen and examined Events Low oxygen requirements On 2 liters nasal cannula Vital signs stable Labs and imaging reviewed Management Supplemental oxygen Titrate to maintain sats 90% or above Incentive spirometry Antibiotics Bronchodilators Monitor renal function Monitor electrolytes Supplement as needed F/u oncology Home oxygen evaluation prior to discharge DVT prophylaxis Plan discussed with: Patient JANES RAMOS MD October 14, 2024 16:20
--- NOTE | 2024-10-14 19:45 | DVHPN2 ---
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 Dyspnea, No Edema, No Lt Headedness, No Other Respiratory: Cough; No Dry; Shortness of breath; No SOB with excertion, No Wheezing, No Hemoptysis, No Pleuritic Pain; Sputum; No Other Gastrointestinal: No Nausea, No Vomiting, No Abdominal Pain, No Diarrhea, No Constipation, No Melena, No Hematochezia, No Other Genitourinary: No Dysuria, No Frequency, No Incontinence, No Hematuria, No Retention, No Other Musculoskeletal: No other, No neck pain, No shoulder pain, No arm pain, No back pain, No hand pain, No leg pain, No foot pain Skin: No Rash, No Lesions, No Jaundice, No Bruising, No Other Objective Vitals Vital Signs Date Time Temp Pulse Resp B/P (MAP) Pulse Ox O2 Delivery O2 Flow Rate FiO2 10/14/24 17:00 97.5 90 20 118/68 (85) 95 97.5 10/14/24 12:06 Nasal Cannula 2.0 10/14/24 12:06 28 Intake/Output Intake and Output 10/14/24 07:00 Intake Total 1500 ml Output Total 550 ml Balance 950 ml Intake Oral 200 ml IV Total 1300 ml Output Urine Total 550 ml # Voids 1 General Appearance: Alert, Oriented X3, Cooperative, No acute distress Lungs: Clear to auscultation, Normal air movement Cardiovascular: Regular rate, Normal S1, Normal S2 Abdomen: Normal bowel sounds, Soft, No tenderness Extremities: No edema Medications Current Medications Medications Dose Ordered Sig/Annalisa Route Start Time Stop Time Status Last Admin Dose Admin Cefepime HCl 50 ml @ 12.5 mls/hr Q8H IV 10/13/24 18:00 10/14/24 17:01 12.5 MLS/HR Ondansetron HCl 4 mg Q4HP PRN IV 10/13/24 15:00 Docusate Sodium 100 mg BIDPRN PRN PO 10/13/24 15:00 Acetaminophen 650 mg Q6HP PRN PO 10/13/24 15:00 Nitroglycerin 0.4 mg Q5MINP PRN SL 10/13/24 15:00 Morphine Sulfate 2 mg Q30M PRN IV 10/13/24 15:00 Ipratropium [place] 0.5 mg Q6HWA [facility] 10/13/24 18:00 10/14/24 19:27 0.5 MG Albuterol 2.5 mg Q6HWA [facility] 10/13/24 18:00 10/14/24 19:27 2.5 MG Apixaban 5 mg BID PO 10/13/24 22:00 10/14/24 09:04 5 MG Docusate Sodium 100 mg DAILY PO 10/14/24 10:00 10/14/24 08:59 100 MG Gabapentin 900 mg TID PO 10/13/24 22:00 10/14/24 14:07 900 MG Pantoprazole Sodium 40 mg DAILY PO 10/14/24 10:00 10/14/24 09:04 40 MG Morphine Sulfate 15 mg Q12HR PO 10/14/24 22:00 Oxycodone/ Acetaminophen 1 tab Q4HP PRN PO 10/14/24 12:45 Vancomycin HCl 0 ml @ 0 mls/hr UD IV 10/14/24 14:45 Vancomycin HCl 150 ml @ 150 mls/hr Q8H IV 10/14/24 16:00 10/14/24 15:26 150 MLS/HR Laboratory Results Laboratory Tests 10/14/24 04:51 Chemistry Test 10/14/24 04:51 Albumin 4.0 g/dL (3.2-4.8) Calcium Level 9.4 mg/dL (8.7-10.4) Total Protein 6.4 g/dL (5.7-8.2) LFT Test 10/14/24 04:51 Alanine Aminotransferase (ALT) < 9 U/L (7-40) Alkaline Phosphatase 99 U/L (46-116) Aspartate Amino Transferase (AST) 8 U/L (13-40) L Total Bilirubin 0.2 mg/dL (0.2-1.0) Urinalysis Test 10/14/24 02:18 Urine Color Yellow (Yellow) Urine Clarity Clear (Clear) Urine pH 6.5 (5.0-9.0) Urine Specific [place] 1.029 (1.001-1.035) Urine Protein 1+ (Negative) H Urine Ketones Negative (Negative) Urine Blood Negative /uL (Negative) Urine Nitrite Negative (Negative) Urine Bilirubin Negative (Negative) Urine Urobilinogen 2 mg/dL (Negative) H Urine Leukocyte Esterase Negative /uL (Negative) Urine RBC 31 /hpf (0 - 3) Urine Microscopic WBC 3 /HPF (0-3) Urine Squamous Epithelial Cells Few /hpf (<5) Urine Bacteria None seen /hpf (None Seen) Urine Hyaline Casts Few /lpf (0 - 2) Urine Mucus Few (None Seen) Urine Glucose Normal mg/dL (Normal) Microbiology Microbiology Date/Time Source Procedure Growth Status 10/13/24 10:33 Blood Blood Culture - Preliminary NO GROWTH AFTER 24 HOURS OF INCUBATION. 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 inpatient Headache SIRS Plan Continue IV antibiotics cefepime and vancomycin [facility] Get the CT scan of the head Get sputum culture Add morphine extended release 15 mg twice a day Continue Percocet for breakthrough pain Full code Advance directives discussed for 22 minutes Discussed with the family at the bedside Plan discussed with: Patient My Orders Orders - KOBY CARRASCO MD Procedure Category Date Status Time Vancomycin Per KEY 10/14/24 In Process Pharmacy Protoc 12:[address] 10/14/24 Resulted 12:38 Morphine Extended PHA 10/14/24 In Process Release Tab (Oramorph 22:00 Oxycodone W/ Acet PHA 10/14/24 In Process 5/325mg Tab (Percocet 12:45 Respiratory Culture LILI 10/14/24 Logged W/ Gs 12:40 *Consult CONS 10/14/24 Transmitted / 12:40 Vancomycin Per PHA 10/14/24 In Process Pharmacy 14:45 Vancomycin PHA 10/14/24 In Process 750mg/150ml 16:00 Date of Service: October 14, 2024 Billing Provider: KOBY CARRASCO MD Common Visit Codes: [id number] INP/OBS CARE(HIGH) Secondary Visit Codes: [id number] CARE PLAN 30 MINUTES KOBY CARRASCO MD October 14, 2024 19:45
[2024-10-14] MEDS: MORPHINE SULF 15mg ER tab PO SCH (21:49)
[2024-10-15] VITALS (15 sets, daily range): BP systolic 114–141; BP diastolic 65–81; PULSE 60–107; RESP 18–24; TEMP 97.7–98.2; O2SAT 24–99
--- NOTE | 2024-10-15 10:09 | DVHPN2 ---
Progress Note - Dictate Date Seen: October 15, 2024 Medical Necessity Reason Pt with a Central, PICC or Fol: No vital signs Vital Sign Date Time Temp Pulse Resp B/P (MAP) Pulse Ox O2 Delivery O2 Flow Rate FiO2 10/15/24 09:49 98 Nasal Cannula 2.0 10/15/24 09:49 28 10/15/24 09:00 98.2 96 20 120/74 (89) 98.2 Total Intake and Output 10/14/24 10/14/24 10/15/24 15:00 23:00 07:00 Intake Total 50 ml 600 ml 400 ml Balance 50 ml 600 ml 400 ml medications Current Medications Medications Dose Ordered Sig/Annalisa Route Start Time Stop Time Status Last Admin Dose Admin Cefepime HCl 50 ml @ 12.5 mls/hr Q8H IV 10/13/24 18:00 10/15/24 09:24 12.5 MLS/HR Ondansetron HCl 4 mg Q4HP PRN IV 10/13/24 15:00 Docusate Sodium 100 mg BIDPRN PRN PO 10/13/24 15:00 Acetaminophen 650 mg Q6HP PRN PO 10/13/24 15:00 Nitroglycerin 0.4 mg Q5MINP PRN SL 10/13/24 15:00 Morphine Sulfate 2 mg Q30M PRN IV 10/13/24 15:00 Ipratropium [place] 0.5 mg Q6HWA [facility] 10/13/24 18:00 10/15/24 06:29 0.5 MG Albuterol 2.5 mg Q6HWA [facility] 10/13/24 18:00 10/15/24 06:29 2.5 MG Apixaban 5 mg BID PO 10/13/24 22:00 10/15/24 08:09 5 MG Docusate Sodium 100 mg DAILY PO 10/14/24 10:00 10/15/24 08:08 100 MG Gabapentin 900 mg TID PO 10/13/24 22:00 10/15/24 05:47 900 MG Pantoprazole Sodium 40 mg DAILY PO 10/14/24 10:00 10/15/24 08:08 40 MG Morphine Sulfate 15 mg Q12HR PO 10/14/24 22:00 10/15/24 08:09 15 MG Oxycodone/ Acetaminophen 1 tab Q4HP PRN PO 10/14/24 12:45 Vancomycin HCl 0 ml @ 0 mls/hr UD IV 10/14/24 14:45 Vancomycin HCl 150 ml @ 150 mls/hr Q8H IV 10/14/24 16:00 10/15/24 08:10 150 MLS/HR laboratory and microbiology Laboratory Tests 10/14/24 04:51 Test 10/14/24 04:51 Range/Units Serum Glucose 104 74-106 mg/dL Assessment/Plan Impression Acute hypoxemic respiratory failure Hx of B-cell lymphoma Pneumonia Atelectasis Patient seen and examined Events Low oxygen requirements On 2 liters nasal cannula No acute events Labs and imaging reviewed Management Supplemental oxygen Titrate to maintain sats 90% or above Incentive spirometry Continue antibiotics F/u cultures Bronchodilators Monitor renal function Monitor electrolytes Supplement as needed F/u oncology Home oxygen evaluation prior to discharge DVT prophylaxis Plan discussed with: Patient JANES RAMOS MD October 15, 2024 10:09
[2024-10-15 11:44] LABS: Hematocrit 36.6 % (41.0-53.0); Hemoglobin 12.3 g/dL (13.5-17.5); Mean Corpuscular Hemoglobin 29.6 pg (28.0-32.0); Mean Corpuscular Hgb Conc. 33.6 g/dL (32.0-36.0); Mean Corpuscular Volume 88.2 fL (80.0-100.0); Platelet Count (auto) 302 10^3/uL (140-450); Red Blood Cells 4.15 10^6/uL (4.5-5.90); Red Cell Distribution Width 17.9 % (11.8-14.3)
[2024-10-15 11:47] LABS: Basophils % (manual) 0 (0.0-2.0); Blast Cells 0; Metamyelocytes % 0; Myelocytes % 0; Promyelocytes % 0; Reactive Lymphocytes 0
[2024-10-15 12:12] LABS: Band Neutrophils % (manual) 5; Eosinophils % (manual) 3 (0-7); Lymphocytes % (manual) 10 (10.0-50.0); Monocytes % (manual) 7 (0-12); Platelet Estimate Adequate
--- NOTE | 2024-10-15 13:17 | DVHPN2 ---
Subjective Still complains of headache His cough he says it is better Changes from previous H/P or p: Changes Eyes: No Pain, No Vision change, No Conjunctivae inflammation, No Eyelid inflammation, No Other, No Redness ENT: No Ear pain, No Ear discharge, No Nose pain, No Nose discharge, No Nose congestion, No Mouth pain, No Mouth swelling, No Throat pain, No Throat swelling, No Other Cardiovascular: No Chest Pain, No Palpitations, No Orthopnea, No Paroxysmal Noc. Dyspnea, No Edema, No Lt Headedness, No Other Respiratory: Cough; No Dry; Shortness of breath; No SOB with excertion, No Wheezing, No Hemoptysis, No Pleuritic Pain; Sputum; No Other Gastrointestinal: No Nausea, No Vomiting, No Abdominal Pain, No Diarrhea, No Constipation, No Melena, No Hematochezia, No Other Genitourinary: No Dysuria, No Frequency, No Incontinence, No Hematuria, No Retention, No Other Musculoskeletal: No other, No neck pain, No shoulder pain, No arm pain, No back pain, No hand pain, No leg pain, No foot pain Skin: No Rash, No Lesions, No Jaundice, No Bruising, No Other Objective Vitals Vital Signs Date Time Temp Pulse Resp B/P (MAP) Pulse Ox O2 Delivery O2 Flow Rate FiO2 10/15/24 13:06 89 20 99 10/15/24 13:06 Nasal Cannula* 3 32 10/15/24 09:00 98.2 120/74 (89) 98.2 Intake/Output Intake and Output 10/15/24 07:00 Intake Total 1050 ml Balance 1050 ml Intake Oral 650 ml IV Total 400 ml # Voids 2 # Bowel Movements 1 General Appearance: Alert, Oriented X3, Cooperative, No acute distress Lungs: Clear to auscultation, Normal air movement Cardiovascular: Regular rate, Normal S1, Normal S2 Abdomen: Normal bowel sounds, Soft, No tenderness Extremities: No edema Medications Current Medications Medications Dose Ordered Sig/Annalisa Route Start Time Stop Time Status Last Admin Dose Admin Cefepime HCl 50 ml @ 12.5 mls/hr Q8H IV 10/13/24 18:00 10/15/24 09:24 12.5 MLS/HR Ondansetron HCl 4 mg Q4HP PRN IV 10/13/24 15:00 Docusate Sodium 100 mg BIDPRN PRN PO 5/23/25 15:00 Acetaminophen 650 mg Q6HP PRN PO 10/13/24 15:00 Nitroglycerin 0.4 mg Q5MINP PRN SL 10/13/24 15:00 Morphine Sulfate 2 mg Q30M PRN IV 10/13/24 15:00 Ipratropium [place] 0.5 mg Q6HWA [facility] 10/13/24 18:00 10/15/24 13:06 0.5 MG Albuterol 2.5 mg Q6HWA [facility] 10/13/24 18:00 10/15/24 13:06 2.5 MG Apixaban 5 mg BID PO 10/13/24 22:00 10/15/24 08:09 5 MG Docusate Sodium 100 mg DAILY PO 10/14/24 10:00 10/15/24 08:08 100 MG Gabapentin 900 mg TID PO 10/13/24 22:00 10/15/24 05:47 900 MG Pantoprazole Sodium 40 mg DAILY PO 10/14/24 10:00 10/15/24 08:08 40 MG Morphine Sulfate 15 mg Q12HR PO 10/14/24 22:00 10/15/24 08:09 15 MG Oxycodone/ Acetaminophen 1 tab Q4HP PRN PO 10/14/24 12:45 Vancomycin HCl 0 ml @ 0 mls/hr UD IV 10/14/24 14:45 Vancomycin HCl 150 ml @ 150 mls/hr Q8H IV 10/14/24 16:00 10/15/24 08:10 150 MLS/HR Laboratory Results Laboratory Tests 10/14/24 04:51 10/15/24 11:25 Urinalysis Test 10/14/24 02:18 Urine Color Yellow (Yellow) Urine Clarity Clear (Clear) Urine pH 6.5 (5.0-9.0) Urine Specific [place] 1.029 (1.001-1.035) Urine Protein 1+ (Negative) H Urine Ketones Negative (Negative) Urine Blood Negative /uL (Negative) Urine Nitrite Negative (Negative) Urine Bilirubin Negative (Negative) Urine Urobilinogen 2 mg/dL (Negative) H Urine Leukocyte Esterase Negative /uL (Negative) Urine RBC 31 /hpf (0 - 3) Urine Microscopic WBC 3 /HPF (0-3) Urine Squamous Epithelial Cells Few /hpf (<5) Urine Bacteria None seen /hpf (None Seen) Urine Hyaline Casts Few /lpf (0 - 2) Urine Mucus Few (None Seen) Urine Glucose Normal mg/dL (Normal) Microbiology Microbiology Date/Time Source Procedure Growth Status 10/13/24 10:33 Blood Blood Culture - Preliminary NO GROWTH AFTER 48 HOURS OF INCUBATION. 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 inpatient Headache SIRS Plan Continue IV antibiotics cefepime and vancomycin [facility] Get the CT scan of the head Get sputum culture Add morphine extended release 15 mg twice a day Continue Percocet for breakthrough pain Full code Advance directives discussed for 22 minutes Discussed with the family at the bedside 10/15/2024: Order MRI of the brain Continue IV antibiotics vancomycin and cefepime Monitor the patient closely The rest of the management will depend on the hospital course Plan discussed with: Patient My Orders Orders - KOBY CARRASCO MD Procedure Category Date Status Time Vancomycin Per PHA 10/14/24 In Process Pharmacy 14:45 Vancomycin PHA 10/14/24 In Process 750mg/150ml 16:00 Vancomycin,Trough LAB 10/15/24 Logged 15:00 Date of Service: October 15, 2024 Billing Provider: KOBY CARRASCO MD Common Visit Codes: [id number] INP/OBS CARE(HIGH) KOBY CARRASCO MD October 15, 2024 13:17
--- NOTE | 2024-10-15 14:55 | DVH ---
PROCEDURE: MRI BRAIN HEAD WO CONTRAST Indication: headache COMPARISON: 10/14/2024 TECHNIQUE: Multiplanar multisequence images of the brain are obtained. FINDINGS: There is no abnormal diffusion restriction. There is no intracranial hemorrhage. No extra-axial flui d collection, mass effect or midline shift. The ventricles are midline and normal in size. The cister ns are patent. Normal intracranial flow voids are preserved. No abnormal susceptibility signal. There is extensive right frontal, ethmoid, sphenoid, right maxillary sinus disease The visualized orb its are unremarkable. IMPRESSION: 1. No acute cerebrovascular ischemia. 2. Extensive paranasal sinus Disease. Recommend ENT consultation to exclude any type of aggressive p rocess within the sinonasal region.
[2024-10-16] VITALS (15 sets, daily range): BP systolic 114–132; BP diastolic 65–75; PULSE 85–110; RESP 16–24; TEMP 97.9–99.4; O2SAT 94–100
[2024-10-16] MEDS: VANCOMYCIN 1GM/200ML PM 200 ML IV SCH (01:24)
[2024-10-16 06:14] LABS: Hematocrit 38.4 % (41.0-53.0); Hemoglobin 12.6 g/dL (13.5-17.5); Mean Corpuscular Hemoglobin 29.4 pg (28.0-32.0); Mean Corpuscular Hgb Conc. 32.9 g/dL (32.0-36.0); Mean Corpuscular Volume 89.4 fL (80.0-100.0); Platelet Count (auto) 341 10^3/uL (140-450); Red Cell Distribution Width 17.7 % (11.8-14.3); White Blood Cell 7.6 10^3/uL (4.4-10.8)
[2024-10-16 06:24] LABS: Basophils % (manual) 0 (0.0-2.0); Blast Cells 0; Metamyelocytes % 0; Myelocytes % 0; Promyelocytes % 0; Reactive Lymphocytes 0
[2024-10-16 08:25] LABS: Band Neutrophils % (manual) 5; Eosinophils % (manual) 3 (0-7); Lymphocytes % (manual) 26 (10.0-50.0); Monocytes % (manual) 1 (0-12); Platelet Estimate Adequate
--- NOTE | 2024-10-16 11:46 | DVHPN2 ---
Subjective Still complains of headache His cough he says it is better Changes from previous H/P or p: Changes Eyes: No Pain, No Vision change, No Conjunctivae inflammation, No Eyelid inflammation, No Other, No Redness ENT: No Ear pain, No Ear discharge, No Nose pain, No Nose discharge, No Nose congestion, No Mouth pain, No Mouth swelling, No Throat pain, No Throat swelling, No Other Cardiovascular: No Chest Pain, No Palpitations, No Orthopnea, No Paroxysmal Noc. Dyspnea, No Edema, No Lt Headedness, No Other Respiratory: Cough; No Dry; Shortness of breath; No SOB with excertion, No Wheezing, No Hemoptysis, No Pleuritic Pain; Sputum; No Other Gastrointestinal: No Nausea, No Vomiting, No Abdominal Pain, No Diarrhea, No Constipation, No Melena, No Hematochezia, No Other Genitourinary: No Dysuria, No Frequency, No Incontinence, No Hematuria, No Retention, No Other Musculoskeletal: No other, No neck pain, No shoulder pain, No arm pain, No back pain, No hand pain, No leg pain, No foot pain Skin: No Rash, No Lesions, No Jaundice, No Bruising, No Other Objective Vitals Vital Signs Date Time Temp Pulse Resp B/P (MAP) Pulse Ox O2 Delivery O2 Flow Rate FiO2 10/16/24 11:25 85 16 100 10/16/24 11:19 Nasal Cannula* 2 28 10/16/24 09:00 98.3 129/70 (89) 98.3 Intake/Output Intake and Output 10/16/24 07:00 Intake Total 2968 ml Balance 2968 ml Intake Oral 2368 ml IV Total 600 ml Blood Product 0 ml # Voids 3 # Bowel Movements 1 General Appearance: Alert, Oriented X3, Cooperative, No acute distress Lungs: Clear to auscultation, Normal air movement Cardiovascular: Regular rate, Normal S1, Normal S2 Abdomen: Normal bowel sounds, Soft, No tenderness Extremities: No edema Medications Current Medications Medications Dose Ordered Sig/Annalisa Route Start Time Stop Time Status Last Admin Dose Admin Cefepime HCl 50 ml @ 12.5 mls/hr Q8H IV 10/13/24 18:00 10/16/24 02:52 12.5 MLS/HR Ondansetron HCl 4 mg Q4HP PRN IV 10/13/24 15:00 Docusate Sodium 100 mg BIDPRN PRN PO 10/13/24 15:00 Acetaminophen 650 mg Q6HP PRN PO 10/13/24 15:00 Nitroglycerin 0.4 mg Q5MINP PRN SL 10/13/24 15:00 Morphine Sulfate 2 mg Q30M PRN IV 10/13/24 15:00 Ipratropium [place] 0.5 mg Q6HWA NEB 10/13/24 18:00 10/16/24 11:19 0.5 MG Albuterol 2.5 mg Q6HWA NEB 10/13/24 18:00 10/16/24 11:19 2.5 MG Apixaban 5 mg BID PO 10/13/24 22:00 10/16/24 08:30 5 MG Docusate Sodium 100 mg DAILY PO 10/14/24 10:00 10/16/24 08:30 100 MG Gabapentin 900 mg TID PO 10/13/24 22:00 10/16/24 05:27 900 MG Pantoprazole Sodium 40 mg DAILY PO 10/14/24 10:00 10/16/24 08:30 40 MG Morphine Sulfate 15 mg Q12HR PO 10/14/24 22:00 10/16/24 08:31 15 MG Oxycodone/ Acetaminophen 1 tab Q4HP PRN PO 10/14/24 12:45 Vancomycin HCl 0 ml @ 0 mls/hr UD IV 10/14/24 14:45 Vancomycin HCl 200 ml @ 160 mls/hr Q8H IV 10/16/24 00:00 10/16/24 08:27 160 MLS/HR Laboratory Results Laboratory Tests 10/14/24 04:51 10/16/24 05:00 Urinalysis Test 10/14/24 02:18 Urine Color Yellow (Yellow) Urine Clarity Clear (Clear) Urine pH 6.5 (5.0-9.0) Urine Specific [place] 1.029 (1.001-1.035) Urine Protein 1+ (Negative) H Urine Ketones Negative (Negative) Urine Blood Negative /uL (Negative) Urine Nitrite Negative (Negative) Urine Bilirubin Negative (Negative) Urine Urobilinogen 2 mg/dL (Negative) H Urine Leukocyte Esterase Negative /uL (Negative) Urine RBC 31 /hpf (0 - 3) Urine Microscopic WBC 3 /HPF (0-3) Urine Squamous Epithelial Cells Few /hpf (<5) Urine Bacteria None seen /hpf (None Seen) Urine Hyaline Casts Few /lpf (0 - 2) Urine Mucus Few (None Seen) Urine Glucose Normal mg/dL (Normal) Microbiology Microbiology Date/Time Source Procedure Growth Status 10/15/24 13:01 Sputum Gram Stain - Preliminary Resulted 10/15/24 13:01 Sputum Respiratory Culture - Preliminary Resulted 10/13/24 10:33 Blood Blood Culture - Preliminary NO GROWTH AFTER 72 HOURS OF INCUBATION. 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 inpatient Headache SIRS Plan Continue IV antibiotics cefepime and vancomycin [facility] Get the CT scan of the head Get sputum culture Add morphine extended release 15 mg twice a day Continue Percocet for breakthrough pain Full code Advance directives discussed for 22 minutes Discussed with the family at the bedside 10/15/2024: Order MRI of the brain Continue IV antibiotics vancomycin and cefepime Monitor the patient closely The rest of the management will depend on the hospital course 10/16/2024: Brain MRI showed extensive paranasal sinus disease Headache is better Continue IV antibiotics Plan discussed with: Patient My Orders Orders - KOBY CARRASCO MD Procedure Category Date Status Time Brain Head Wo Contrast MRI 10/15/24 Resulted 13:17 Vancomycin 1gm/200ml PHA 10/16/24 In Process Pm 00:00 Vancomycin,Trough LAB 10/16/24 Logged 23:00 Vancomycin Per KEY 10/15/24 In Process [facility]acy [facility] 17:07 Date of Service: October 16, 2024 Billing Provider: KOBY CARRASCO MD Common Visit Codes: [id number] INP/OBS CARE(HIGH) KOBY CARRASCO MD October 16, 2024 11:46
[2024-10-16] MEDS: OXYCODONE W/ ACETAMINOPHEN 5/325MG TABLET PO PRN (20:31)
[2024-10-17] VITALS (14 sets, daily range): BP systolic 110–136; BP diastolic 68–80; PULSE 82–117; RESP 16–19; TEMP 97.9–98.8; O2SAT 94–100
--- NOTE | 2024-10-17 10:06 | DVHPN2 ---
Subjective Doing better Less headache He is still having some shortness of breaths and cough He is on 2 L nasal cannula Changes from previous H/P or p: Changes Eyes: No Pain, No Vision change, No Conjunctivae inflammation, No Eyelid inflammation, No Other, No Redness ENT: No Ear pain, No Ear discharge, No Nose pain, No Nose discharge, No Nose congestion, No Mouth pain, No Mouth swelling, No Throat pain, No Throat swelling, No Other Cardiovascular: No Chest Pain, No Palpitations, No Orthopnea, No Paroxysmal Noc. Dyspnea, No Edema, No Lt Headedness, No Other Respiratory: Cough; No Dry; Shortness of breath; No SOB with excertion, No Wheezing, No Hemoptysis, No Pleuritic Pain; Sputum; No Other Gastrointestinal: No Nausea, No Vomiting, No Abdominal Pain, No Diarrhea, No Constipation, No Melena, No Hematochezia, No Other Genitourinary: No Dysuria, No Frequency, No Incontinence, No Hematuria, No Retention, No Other Musculoskeletal: No other, No neck pain, No shoulder pain, No arm pain, No back pain, No hand pain, No leg pain, No foot pain Skin: No Rash, No Lesions, No Jaundice, No Bruising, No Other Objective Vitals Vital Signs Date Time Temp Pulse Resp B/P (MAP) Pulse Ox O2 Delivery O2 Flow Rate FiO2 10/17/24 08:30 98.0 107 17 136/80 (98) 95 98.0 10/17/24 08:00 Nasal Cannula* 2 28 Intake/Output Intake and Output 10/17/24 07:00 Intake Total 3390 ml Balance 3390 ml Intake Oral 2690 ml IV Total 700 ml # Voids 7 General Appearance: Alert, Oriented X3, Cooperative, No acute distress Lungs: Clear to auscultation, Normal air movement Cardiovascular: Regular rate, Normal S1, Normal S2 Abdomen: Normal bowel sounds, Soft, No tenderness Extremities: No edema Medications Current Medications Medications Dose Ordered Sig/Annalisa Route Start Time Stop Time Status Last Admin Dose Admin Cefepime HCl 50 ml @ 12.5 mls/hr Q8H IV 10/13/24 18:00 10/17/24 02:10 12.5 MLS/HR Ondansetron HCl 4 mg Q4HP PRN IV 10/13/24 15:00 Docusate Sodium 100 mg BIDPRN PRN PO 10/13/24 15:00 Acetaminophen 650 mg Q6HP PRN PO 10/13/24 15:00 Nitroglycerin 0.4 mg Q5MINP PRN SL 10/13/24 15:00 Morphine Sulfate 2 mg Q30M PRN IV 10/13/24 15:00 Ipratropium [place] 0.5 mg Q6HWA NEB 10/13/24 18:00 10/17/24 06:15 0.5 MG Albuterol 2.5 mg Q6HWA NEB 10/13/24 18:00 10/17/24 06:15 2.5 MG Apixaban 5 mg BID PO 10/13/24 22:00 10/17/24 08:14 5 MG Docusate Sodium 100 mg DAILY PO 10/14/24 10:00 10/17/24 08:14 100 MG Gabapentin 900 mg TID PO 10/13/24 22:00 10/17/24 05:57 900 MG Pantoprazole Sodium 40 mg DAILY PO 10/14/24 10:00 10/17/24 08:15 40 MG Morphine Sulfate 15 mg Q12HR PO 10/14/24 22:00 10/17/24 08:15 15 MG Oxycodone/ Acetaminophen 1 tab Q4HP PRN PO 10/14/24 12:45 10/17/24 06:10 1 TAB Vancomycin HCl 0 ml @ 0 mls/hr UD IV 10/14/24 14:45 Vancomycin HCl 250 ml @ 200 mls/hr Q8H IV 10/17/24 16:00 Laboratory Results Laboratory Tests 10/14/24 04:51 10/16/24 05:00 Urinalysis Test 10/14/24 02:18 Urine Color Yellow (Yellow) Urine Clarity Clear (Clear) Urine pH 6.5 (5.0-9.0) Urine Specific [place] 1.029 (1.001-1.035) Urine Protein 1+ (Negative) H Urine Ketones Negative (Negative) Urine Blood Negative /uL (Negative) Urine Nitrite Negative (Negative) Urine Bilirubin Negative (Negative) Urine Urobilinogen 2 mg/dL (Negative) H Urine Leukocyte Esterase Negative /uL (Negative) Urine RBC 31 /hpf (0 - 3) Urine Microscopic WBC 3 /HPF (0-3) Urine Squamous Epithelial Cells Few /hpf (<5) Urine Bacteria None seen /hpf (None Seen) Urine Hyaline Casts Few /lpf (0 - 2) Urine Mucus Few (None Seen) Urine Glucose Normal mg/dL (Normal) Microbiology Microbiology Date/Time Source Procedure Growth Status 10/15/24 13:01 Sputum Gram Stain - Final Resulted 10/15/24 13:01 Sputum Respiratory Culture - Preliminary Resulted 10/13/24 10:33 Blood Blood Culture - Preliminary NO GROWTH AFTER 72 HOURS OF INCUBATION. 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 inpatient Headache SIRS Plan Continue IV antibiotics cefepime and vancomycin [facility] Get the CT scan of the head Get sputum culture Add morphine extended release 15 mg twice a day Continue Percocet for breakthrough pain Full code Advance directives discussed for 22 minutes Discussed with the family at the bedside 10/15/2024: Order MRI of the brain Continue IV antibiotics vancomycin and cefepime Monitor the patient closely The rest of the management will depend on the hospital course 10/16/2024: Brain MRI showed extensive paranasal sinus disease Headache is better Continue IV antibiotics 10/17/2024: Continue current management Assess for the need for home O2 Do a blood gas on room air IV antibiotics with the vancomycin and cefepime Med neb treatments as needed Oxygen as needed Monitor closely Plan discussed with: Patient My Orders Orders - KOBY CARRASCO MD Procedure Category Date Status Time Vancomycin PHA 10/17/24 In Process 1.25gm/250ml 16:00 Vancomycin,Trough LAB 10/18/24 Verified 15:00 Vancomycin Per KEY 10/18/24 In Process Pharmacy [facility] 16:00 Creatinine LAB 10/18/24 Verified 05:00 Abg W/ Co-Ox RT 10/17/24 Verified 10:04 Date of Service: October 17, 2024 Billing Provider: KOBY CARRASCO MD Common Visit Codes: [id number] INP/OBS CARE(HIGH) KOBY CARRASCO MD October 17, 2024 10:06
--- NOTE | 2024-10-17 12:23 | ECG ---
[facility] Test Date: 2024-10-13 Test Time: 10:03:20 Pat Name: MAVERICK AHUMADA Department: ED Room: 0270 A Gender: M [employer]: tatyana : 1980 Requested By: JYOTSNA CASEY Order Number: [id number] Reading MD: Kendall Luis Measurements Intervals [place] Rate: 123 P: 25 FL: 119 QRS: 60 QRSD: 93 T: -32 QT: 286 QTc: 409 Interpretive Statements Sinus tachycardia Probable left atrial enlargement Nonspecific T abnormalities, lateral leads Electronically Signed On 10-19-2024 9:28:10 PDT by Kendall Luis Please click the below link to view image of tracing.
[2024-10-17] MEDS: VANCOMYCIN 1.25GM/250ML 250 ML IV SCH (15:18)
--- NOTE | 2024-10-17 20:11 | DVHPN2 ---
Progress Note - Dictate Date Seen: October 17, 2024 Medical Necessity Reason Pt with a Central, PICC or Fol: No vital signs Vital Sign Date Time Temp Pulse Resp B/P (MAP) Pulse Ox O2 Delivery O2 Flow Rate FiO2 10/17/24 18:31 95 16 100 10/17/24 18:25 Room Air 0.0 10/17/24 18:25 21 10/17/24 16:52 98.2 122/71 (88) 98.2 Total Intake and Output 10/16/24 10/16/24 10/17/24 15:00 23:00 07:00 Intake Total 200 ml 2090 ml 1100 ml Balance 200 ml 2090 ml 1100 ml medications Current Medications Medications Dose Ordered Sig/Annalisa Route Start Time Stop Time Status Last Admin Dose Admin Cefepime HCl 50 ml @ 12.5 mls/hr Q8H IV 10/13/24 18:00 10/17/24 17:38 12.5 MLS/HR Ondansetron HCl 4 mg Q4HP PRN IV 10/13/24 15:00 Docusate Sodium 100 mg BIDPRN PRN PO 10/13/24 15:00 Acetaminophen 650 mg Q6HP PRN PO 10/13/24 15:00 Nitroglycerin 0.4 mg Q5MINP PRN SL 10/13/24 15:00 Morphine Sulfate 2 mg Q30M PRN IV 10/13/24 15:00 Ipratropium [place] 0.5 mg Q6HWA NEB 10/13/24 18:00 10/17/24 18:25 0.5 MG Albuterol 2.5 mg Q6HWA [facility] 10/13/24 18:00 10/17/24 18:25 2.5 MG Apixaban 5 mg BID PO 10/13/24 22:00 10/17/24 08:14 5 MG Docusate Sodium 100 mg DAILY PO 10/14/24 10:00 10/17/24 08:14 100 MG Gabapentin 900 mg TID PO 10/13/24 22:00 10/17/24 14:15 900 MG Pantoprazole Sodium 40 mg DAILY PO 10/14/24 10:00 10/17/24 08:15 40 MG Morphine Sulfate 15 mg Q12HR PO 10/14/24 22:00 10/17/24 08:15 15 MG Oxycodone/ Acetaminophen 1 tab Q4HP PRN PO 10/14/24 12:45 10/17/24 06:10 1 TAB Vancomycin HCl 0 ml @ 0 mls/hr UD IV 10/14/24 14:45 Vancomycin HCl 250 ml @ 200 mls/hr Q8H IV 10/17/24 16:00 10/17/24 15:18 200 MLS/HR laboratory and microbiology Laboratory Tests 10/16/24 05:00 10/14/24 04:51 Test 10/14/24 04:51 Range/Units Serum Glucose 104 74-106 mg/dL Assessment/Plan Impression Acute hypoxemic respiratory failure Hx of B-cell lymphoma Pneumonia Atelectasis Patient seen and examined Events Low oxygen requirements On 2 liters nasal cannula No distress Labs and imaging reviewed Management Supplemental oxygen Titrate to maintain sats 90% or above Incentive spirometry Continue antibiotics F/u cultures Bronchodilators Monitor renal function Monitor electrolytes Supplement as needed F/u oncology Home oxygen evaluation prior to discharge DVT prophylaxis Dietary Evaluation Review Recommendations by RD: Dietary education by RD Comments: 1) Encourage optimal PO intake 2) Refer to outpatient RD for weight management 3) Follow-up with oncology 4) Continue to monitor I&O, labs, and skin integrity Expected Outcomes/Goals: 1) appetite and labs to improve 2) f/u in 3-5 days Plan discussed with: Patient JANES RAMOS MD October 17, 2024 20:11
[2024-10-18] VITALS (13 sets, daily range): BP systolic 106–131; BP diastolic 70–80; PULSE 88–106; RESP 16–19; TEMP 97.9–98.2; O2SAT 93–100
--- NOTE | 2024-10-18 10:34 | DVHPN2 ---
Subjective He is doing better now He is on room air Changes from previous H/P or p: Changes Eyes: No Pain, No Vision change, No Conjunctivae inflammation, No Eyelid inflammation, No Other, No Redness ENT: No Ear pain, No Ear discharge, No Nose pain, No Nose discharge, No Nose congestion, No Mouth pain, No Mouth swelling, No Throat pain, No Throat swelling, No Other Cardiovascular: No Chest Pain, No Palpitations, No Orthopnea, No Paroxysmal Noc. Dyspnea, No Edema, No Lt Headedness, No Other Respiratory: Cough; No Dry; Shortness of breath; No SOB with excertion, No Wheezing, No Hemoptysis, No Pleuritic Pain; Sputum; No Other Gastrointestinal: No Nausea, No Vomiting, No Abdominal Pain, No Diarrhea, No Constipation, No Melena, No Hematochezia, No Other Genitourinary: No Dysuria, No Frequency, No Incontinence, No Hematuria, No Retention, No Other Musculoskeletal: No other, No neck pain, No shoulder pain, No arm pain, No back pain, No hand pain, No leg pain, No foot pain Skin: No Rash, No Lesions, No Jaundice, No Bruising, No Other Objective Vitals Vital Signs Date Time Temp Pulse Resp B/P (MAP) Pulse Ox O2 Delivery O2 Flow Rate FiO2 10/18/24 10:23 94 18 100 10/18/24 10:14 Room Air* 0 21 10/18/24 08:31 98.1 106/73 (84) 98.1 Intake/Output Intake and Output 10/18/24 07:00 Intake Total 2350 ml Output Total 500 ml Balance 1850 ml Intake Oral 1550 ml IV Total 800 ml Output Urine Total 500 ml # Voids 1 # Bowel Movements 1 General Appearance: Alert, Oriented X3, Cooperative, No acute distress Lungs: Clear to auscultation, Normal air movement Cardiovascular: Regular rate, Normal S1, Normal S2 Abdomen: Normal bowel sounds, Soft, No tenderness Extremities: No edema Medications Current Medications Medications Dose Ordered Sig/Annalisa Route Start Time Stop Time Status Last Admin Dose Admin Cefepime HCl 50 ml @ 12.5 mls/hr Q8H IV 10/13/24 18:00 10/18/24 01:29 12.5 MLS/HR Ondansetron HCl 4 mg Q4HP PRN IV 10/13/24 15:00 Docusate Sodium 100 mg BIDPRN PRN PO 10/13/24 15:00 Acetaminophen 650 mg Q6HP PRN PO 10/13/24 15:00 Nitroglycerin 0.4 mg Q5MINP PRN SL 10/13/24 15:00 Morphine Sulfate 2 mg Q30M PRN IV 10/13/24 15:00 Ipratropium [place] 0.5 mg Q6HWA NEB 10/13/24 18:00 10/18/24 10:13 0.5 MG Albuterol 2.5 mg Q6HWA NEB 10/13/24 18:00 10/18/24 10:13 2.5 MG Apixaban 5 mg BID PO 10/13/24 22:00 10/18/24 09:19 5 MG Docusate Sodium 100 mg DAILY PO 10/14/24 10:00 10/18/24 09:19 100 MG Gabapentin 900 mg TID PO 10/13/24 22:00 10/18/24 05:55 900 MG Pantoprazole Sodium 40 mg DAILY PO 10/14/24 10:00 10/18/24 09:19 40 MG Morphine Sulfate 15 mg Q12HR PO 10/14/24 22:00 10/18/24 09:19 15 MG Oxycodone/ Acetaminophen 1 tab Q4HP PRN PO 10/14/24 12:45 10/18/24 09:33 1 TAB Vancomycin HCl 0 ml @ 0 mls/hr UD IV 10/14/24 14:45 Vancomycin HCl 250 ml @ 200 mls/hr Q8H IV 10/17/24 16:00 10/18/24 09:18 200 MLS/HR Laboratory Results Laboratory Tests 10/14/24 04:51 10/16/24 05:00 10/18/24 06:19 Urinalysis Test 10/14/24 02:18 Urine Color Yellow (Yellow) Urine Clarity Clear (Clear) Urine pH 6.5 (5.0-9.0) Urine Specific [place] 1.029 (1.001-1.035) Urine Protein 1+ (Negative) H Urine Ketones Negative (Negative) Urine Blood Negative /uL (Negative) Urine Nitrite Negative (Negative) Urine Bilirubin Negative (Negative) Urine Urobilinogen 2 mg/dL (Negative) H Urine Leukocyte Esterase Negative /uL (Negative) Urine RBC 31 /hpf (0 - 3) Urine Microscopic WBC 3 /HPF (0-3) Urine Squamous Epithelial Cells Few /hpf (<5) Urine Bacteria None seen /hpf (None Seen) Urine Hyaline Casts Few /lpf (0 - 2) Urine Mucus Few (None Seen) Urine Glucose Normal mg/dL (Normal) Microbiology Microbiology Date/Time Source Procedure Growth Status 10/15/24 13:01 Sputum Gram Stain - Final Resulted 10/15/24 13:01 Sputum Respiratory Culture - Preliminary Resulted 10/13/24 10:33 Blood Blood Culture - Preliminary NO GROWTH AFTER 72 HOURS OF INCUBATION. 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 inpatient Headache SIRS Plan Continue IV antibiotics cefepime and vancomycin [facility] Get the CT scan of the head Get sputum culture Add morphine extended release 15 mg twice a day Continue Percocet for breakthrough pain Full code Advance directives discussed for 22 minutes Discussed with the family at the bedside 10/15/2024: Order MRI of the brain Continue IV antibiotics vancomycin and cefepime Monitor the patient closely The rest of the management will depend on the hospital course 10/16/2024: Brain MRI showed extensive paranasal sinus disease Headache is better Continue IV antibiotics 10/17/2024: Continue current management Assess for the need for home O2 Do a blood gas on room air IV antibiotics with the vancomycin and cefepime Med neb treatments as needed Oxygen as needed Monitor closely 10/18/2024: Continue the current management He is on room air now No need for blood gas Does not qualify for home O2 Continued current treatment here 1 more day and discharge planning for tomorrow Plan discussed with: Patient Date of Service: October 18, 2024 Billing Provider: KOBY CARRASCO MD Common Visit Codes: [id number] INP/OBS CARE(MOD) KOBY CARRASCO MD October 18, 2024 10:35
--- NOTE | 2024-10-18 18:10 | DVHPN2 ---
Progress Note - Dictate Date Seen: October 18, 2024 Medical Necessity Reason Pt with a Central, PICC or Fol: No vital signs Vital Sign Date Time Temp Pulse Resp B/P (MAP) Pulse Ox O2 Delivery O2 Flow Rate FiO2 10/18/24 16:53 98.2 101 16 117/70 (86) 97 98.2 10/18/24 10:14 Room Air* 0 21 Total Intake and Output 10/17/24 10/17/24 10/18/24 15:00 23:00 07:00 Intake Total 250 ml 1100 ml 1000 ml Output Total 500 ml Balance 250 ml 1100 ml 500 ml medications Current Medications Medications Dose Ordered Sig/Annalisa Route Start Time Stop Time Status Last Admin Dose Admin Cefepime HCl 50 ml @ 12.5 mls/hr Q8H IV 10/13/24 18:00 10/18/24 14:08 12.5 MLS/HR Ondansetron HCl 4 mg Q4HP PRN IV 10/13/24 15:00 Docusate Sodium 100 mg BIDPRN PRN PO 10/13/24 15:00 Acetaminophen 650 mg Q6HP PRN PO 10/13/24 15:00 Nitroglycerin 0.4 mg Q5MINP PRN SL 10/13/24 15:00 Morphine Sulfate 2 mg Q30M PRN IV 10/13/24 15:00 Ipratropium [place] 0.5 mg Q6HWA [place] 10/13/24 18:00 10/18/24 10:13 0.5 MG Albuterol 2.5 mg Q6HWA [place] 10/13/24 18:00 10/18/24 10:13 2.5 MG Apixaban 5 mg BID PO 10/13/24 22:00 10/18/24 09:19 5 MG Docusate Sodium 100 mg DAILY PO 10/14/24 10:00 10/18/24 09:19 100 MG Gabapentin 900 mg TID PO 10/13/24 22:00 10/18/24 14:40 900 MG Pantoprazole Sodium 40 mg DAILY PO 10/14/24 10:00 10/18/24 09:19 40 MG Morphine Sulfate 15 mg Q12HR PO 10/14/24 22:00 10/18/24 09:19 15 MG Oxycodone/ Acetaminophen 1 tab Q4HP PRN PO 10/14/24 12:45 10/18/24 14:41 1 TAB Vancomycin HCl 0 ml @ 0 mls/hr UD IV 10/14/24 14:45 Vancomycin HCl 200 ml @ 200 mls/hr Q8H IV 10/18/24 21:00 laboratory and microbiology Laboratory Tests 10/18/24 06:19 10/16/24 05:00 10/14/24 04:51 Test 10/14/24 04:51 Range/Units Serum Glucose 104 74-106 mg/dL Assessment/Plan Impression Acute hypoxemic respiratory failure Hx of B-cell lymphoma Pneumonia Atelectasis Patient seen and examined Events Low oxygen requirements On 2 liters nasal cannula No acute events Labs and imaging reviewed Management Supplemental oxygen Titrate to maintain sats 90% or above Incentive spirometry Continue antibiotics F/u cultures Bronchodilators Monitor renal function Monitor electrolytes Supplement as needed F/u oncology Home oxygen evaluation prior to discharge DVT prophylaxis Dietary Evaluation Review Recommendations by RD: Dietary education by RD Comments: 1) Encourage optimal PO intake 2) Refer to outpatient RD for weight management 3) Follow-up with oncology 4) Continue to monitor I&O, labs, and skin integrity Expected Outcomes/Goals: 1) appetite and labs to improve 2) f/u in 3-5 days Plan discussed with: Patient JANES RAMOS MD October 18, 2024 18:10
[2024-10-18] MEDS: VANCOMYCIN 1GM/200ML PM 200 ML IV SCH (20:56)
[2024-10-19] VITALS (11 sets, daily range): BP systolic 115–137; BP diastolic 72–83; PULSE 89–113; RESP 16–18; TEMP 97.4–98.3; O2SAT 93–100
--- NOTE | 2024-10-19 12:38 | DVHPN2 ---
Progress Note - Dictate Date Seen: October 19, 2024 Medical Necessity Reason Pt with a Central, PICC or Fol: No vital signs Vital Sign Date Time Temp Pulse Resp B/P (MAP) Pulse Ox O2 Delivery O2 Flow Rate FiO2 10/19/24 12:06 113 18 100 10/19/24 12:00 Room Air* 0 21 10/19/24 10:19 10/19/24 08:00 97.6 97.6 Total Intake and Output 10/18/24 10/18/24 10/19/24 15:00 23:00 07:00 Intake Total 1800 ml 550 ml Balance 1800 ml 550 ml medications Current Medications Medications Dose Ordered Sig/Annalisa Route Start Time Stop Time Status Last Admin Dose Admin Cefepime HCl 50 ml @ 12.5 mls/hr Q8H IV 10/13/24 18:00 10/19/24 10:11 12.5 MLS/HR Ondansetron HCl 4 mg Q4HP PRN IV 10/13/24 15:00 Docusate Sodium 100 mg BIDPRN PRN PO 10/13/24 15:00 Acetaminophen 650 mg Q6HP PRN PO 10/13/24 15:00 Nitroglycerin 0.4 mg Q5MINP PRN SL 10/13/24 15:00 Morphine Sulfate 2 mg Q30M PRN IV 10/13/24 15:00 Ipratropium [place] 0.5 mg Q6HWA [facility] 10/13/24 18:00 10/19/24 12:00 0.5 MG Albuterol 2.5 mg Q6HWA [facility] 10/13/24 18:00 10/19/24 12:00 2.5 MG Apixaban 5 mg BID PO 10/13/24 22:00 10/19/24 10:11 5 MG Docusate Sodium 100 mg DAILY PO 10/14/24 10:00 10/19/24 10:11 100 MG Gabapentin 900 mg TID PO 10/13/24 22:00 10/19/24 05:39 900 MG Pantoprazole Sodium 40 mg DAILY PO 10/14/24 10:00 10/19/24 10:11 40 MG Morphine Sulfate 15 mg Q12HR PO 10/14/24 22:00 10/19/24 10:12 15 MG Oxycodone/ Acetaminophen 1 tab Q4HP PRN PO 10/14/24 12:45 10/19/24 05:40 1 TAB Vancomycin HCl 0 ml @ 0 mls/hr UD IV 10/14/24 14:45 Vancomycin HCl 200 ml @ 200 mls/hr Q8H IV 10/18/24 21:00 10/19/24 05:17 200 MLS/HR laboratory and microbiology Laboratory Tests 10/19/24 05:54 10/16/24 05:00 10/14/24 04:51 Test 10/14/24 04:51 Range/Units Serum Glucose 104 74-106 mg/dL Assessment/Plan Impression Acute hypoxemic respiratory failure Hx of B-cell lymphoma Pneumonia Atelectasis Patient seen and examined Events Low oxygen requirements On 2 liters nasal cannula No acute events Labs and imaging reviewed Management Supplemental oxygen Titrate to maintain sats 90% or above Incentive spirometry Continue antibiotics F/u cultures Bronchodilators Monitor renal function Monitor electrolytes Supplement as needed F/u oncology Home oxygen evaluation prior to discharge DVT prophylaxis Dietary Evaluation Review Recommendations by RD: Dietary education by RD Comments: 1) Encourage optimal PO intake 2) Refer to outpatient RD for weight management 3) Follow-up with oncology 4) Continue to monitor I&O, labs, and skin integrity Expected Outcomes/Goals: 1) appetite and labs to improve 2) f/u in 3-5 days Plan discussed with: Other (rn) JANES RAMOS MD October 19, 2024 12:38
[2024-10-19] MEDS ORDERED: AUG875T PO (13:56)
[2024-10-19] MEDS ORDERED: MORP1TAB12 PO (13:58)
--- NOTE | 2024-10-19 15:33 | DVHDS2 ---
Discharge Summary Date of Admission October 13, 2024 at 14:52 Date of Discharge: October 19, 2024 Labs/Diagnostic Data: Laboratory Results Test 10/19/24 05:54 10/18/24 15:03 10/16/24 05:00 10/14/24 04:51 Creatinine 0.72 mg/dL (0.700-1.30) Glomerular Filtration Rate Calc 114 mL/min (>90) Vancomycin Level Trough 23.2 ug/mL (5-10) White Blood Count 7.6 10^3/uL (4.4-10.8) Red Blood Count 4.30 10^6/uL (4.5-5.90) Hemoglobin 12.6 g/dL (13.5-17.5) Hematocrit 38.4 % (41.0-53.0) Mean Corpuscular Volume 89.4 fL (80.0-100.0) Mean Corpuscular Hemoglobin 29.4 pg (28.0-32.0) Mean Corpuscular Hemoglobin Concent 32.9 g/dL (32.0-36.0) Red Cell Distribution Width 17.7 % (11.8-14.3) Platelet Count 341 10^3/uL (140-450) Mean Platelet Volume 7.0 fL (6.9-10.8) Neutrophils (%) (Auto) % (37.0-80.0) Lymphocytes (%) (Auto) % (10.0-50.0) Monocytes (%) (Auto) % (0.0-12.0) Basophils (%) (Auto) % (0.0-2.0) Neutrophils # (Auto) 10 ^3/uL (1.6-8.6) Lymphocytes # (Auto) 10 ^3/uL (0.4-5.4) Monocytes # (Auto) 10 ^3/uL (0-1.3) Differential Total Cells Counted 100.0 (100) Neutrophils % (Manual) 65 (37.0-80.0) Band Neutrophils % (Manual) 5 Lymphocytes % (Manual) 26 (10.0-50.0) Monocytes % (Manual) 1 (0-12) Eosinophils % (Manual) 3 (0-7) Basophils % (Manual) 0 (0.0-2.0) Metamyelocytes % (manual) 0 Myelocytes % (Manual) 0 Promyelocytes % (Manual) 0 Blast Cells % (Manual) 0 Reactive Lymphocytes 0 Platelet Estimate Adequate Eosinophils (%) (Auto) 1.5 % (0.0-7.0) Eosinophils # (Auto) 0.1 10 ^3/uL (0-0.8) Basophils # (Auto) 0 10 ^3/uL (0-0.2) Nucleated Red Blood Cells 0.0 % Sodium Level 142 mmol/L (136-145) Potassium Level 4.1 mmol/L (3.5-5.1) Chloride Level 107 mmol/L (98-107) Carbon Dioxide Level 27 mmol/L (20-31) Anion Gap 8 (5-15) Blood Urea Nitrogen 14 mg/dL (9-23) BUN/Creatinine Ratio 18.7 (10.0-20.0) Serum Glucose 104 mg/dL (74-106) Calcium Level 9.4 mg/dL (8.7-10.4) Total Bilirubin 0.2 mg/dL (0.2-1.0) Aspartate Amino Transferase (AST) 8 U/L (13-40) Alanine Aminotransferase (ALT) < 9 U/L (7-40) Alkaline Phosphatase 99 U/L (46-116) Total Protein 6.4 g/dL (5.7-8.2) Albumin 4.0 g/dL (3.2-4.8) Test 10/14/24 02:18 10/13/24 10:18 Urine Color Yellow (Yellow) Urine Clarity Clear (Clear) Urine pH 6.5 (5.0-9.0) Urine Specific Dix 1.029 (1.001-1.035) Urine Protein 1+ (Negative) Urine Ketones Negative (Negative) Urine Blood Negative /uL (Negative) Urine Nitrite Negative (Negative) Urine Bilirubin Negative (Negative) Urine Urobilinogen 2 mg/dL (Negative) Urine Leukocyte Esterase Negative /uL (Negative) Urine RBC 31 /hpf (0 - 3) Urine Microscopic WBC 3 /HPF (0-3) Urine Squamous Epithelial Cells Few /hpf (<5) Urine Bacteria None seen /hpf (None Seen) Urine Hyaline Casts Few /lpf (0 - 2) Urine Mucus Few (None Seen) Urine Glucose Normal mg/dL (Normal) Urine Opiates Screen Neg (NEGATIVE) Urine Fentanyl Screen Neg (NEGATIVE) Urine Barbiturates Screen Neg (NEGATIVE) Urine Phencyclidine Screen Neg (NEGATIVE) Urine Amphetamines Screen Pos (NEGATIVE) Urine Benzodiazepines Screen Neg (NEGATIVE) Urine Cocaine Screen Neg (NEGATIVE) Urine Cannabinoids Screen Neg (NEGATIVE) Prothrombin Time 12.4 sec (9.3-11.8) Prothrombin Time INR 1.19 (0.9-1.15) Activated Partial Thromboplast Time 36.1 SEC (24.5-34.5) Lactic Acid Level 2.0 mmol/L (0.4-2.0) Other Laboratory Tests 10/19/24 05:54 10/16/24 05:00 10/14/24 04:51 Brief Hx & Hospital Course: Final diagnoses: Left middle lobe and left lower lobe pneumonia gram+ and possible g- bacteria History of Burkitt lymphoma status post chemotherapy History 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 according to the family inpatient Headache SIRS He was admitted for SOB and cough CXR showed pneumonia He was given IV cefepime and vancomycin O2 and med-nebs were given He improved slowly His pain was controlled with Percocet prn MS ER was also added He needed O2 and gradually became less dependent on it He is on room air now DC home on Augmentin x7 days Add MSContin for his home meds F/U with [facility] Condition at Discharge: Stable Final Diagnosis/Problems List Left middle lobe and left lower lobe pneumonia History of Burkitt lymphoma status post chemotherapy History of a lung mass Headache SIRS Discharge Disposition: Home SNF Discharge Will this Physician continue t: No Discharge Instruct/Medications Diet: Regular Activity: No Restrictions, As Tolerated Follow Up/Referral: PCP AMINTA Medications: Augmentin x 7 days MSER 15 mg bid Resume the home meds Discharge Statement: "Patient was advised to return to the ER or call 911 if any headaches, dizziness, shortness of breath, chest pain, abdominal pain, bleeding, fevers, or worsening of medical condition. Patient was counseled about treatment plan, medications, possible side effects, patientverbalized understanding. All questions were answered to the best of my ability. This discharge took greater then 30 minutes in planning, reviewing documentation, counseling the patient, and discussing with other team members." ASSESSMENT ASSESSMENT Assessment Left middle lobe and left lower lobe pneumonia History of Burkitt lymphoma status post chemotherapy History of a lung mass Headache SIRS Date of Service: October 19, 2024 Billing Provider: KOBY CARRASCO MD Common Visit Codes: 58855-JLI/OBS DISCH DAY >30min KOBY CARRASCO MD October 19, 2024 15:33
== END 2024-10-19 15:50 | disposition home or self-care (01) | DRG 133 ==
LOC: ER 09:56 → EDBD 09:56 → OVERFLOW 14:52 → WEST WING 16:03
PROVIDERS: ADMIT Internal Medicine Geriatric Medicine; ATTEND Internal Medicine Geriatric Medicine
DX: J96.01 Acute respiratory failure with hypoxia (principal); J15.69 Pneumonia due to other Gram-negative bacteria; C85.99 Non-Hodgkin lymphoma, unspecified, extranodal and solid organ sites; R65.10 Systemic inflammatory response syndrome (SIRS) of non-infectious origin without acute organ dysfunction; J15.9 Unspecified bacterial pneumonia; Z92.21 Personal history of antineoplastic chemotherapy; Z79.899 Other long term (current) drug therapy; Z79.01 Long term (current) use of anticoagulants
CPT/HCPCS: 36415; 70450; 70551; 71045; 80053; 80202; 80307; 81001; 82565; 83605; 85007; 85025; 85027; 85610; 85730; 87040; 87070; 87205; 93005; 94640; 96365; 96375; 99291; G0378; J1885

== ENCOUNTER 2024-11-14 19:19 | Emergency (ER) | payer MEDICAID ==
[~2024-11-14] VITALS: Ht 172.7 cm; Wt 81.4 kg
[~2024-11-14 19:19] MED LIST changes: -ACYC1TAB2 PO; +APIX5TAB PO; +DOCU-265 PO; +GABA-1250 PO; +MORP1TAB12 PO; +PANT40T PO; -PRED20TA2 PO
[2024-11-14 19:36] VITALS: BP 156/96; PULSE 101; RESP 20; TEMP 98.7; O2SAT 97
--- NOTE | 2024-11-14 19:36 | ED.PDOC ---
History of Present Illness(SKN HPI Comments This is a 44 year old male presenting to the ED with chief complaint of painful rash. Patient reports that he suddenly developed a rash to his left side/back with associated severe pain with breathing and movement. Patient relays that he has history of lymphoma and has currently had 6 rounds of chemotherapy performed, not cancer free yet. Patient denies any N/V, chest pain, SOB, fever, or chills. Time Seen by MD: 19:33 Primary Care Provider: ASHOK History of Present Illness: Nurses Notes, Medications, Allergies Allergies: Coded Allergies: NO KNOWN ALLERGIES (Unverified , 02/04/22) Home Meds Active Scripts Morphine Sulfate (Morphine Sulfate Er) 15 Mg Tab, 15 MG PO Q12HR PRN for 30 Days, #60 TAB Prov:KOBY CARRASCO MD 10/19/24 Amoxicillin & Pot Clavulanate (AUGMENTIN TABLET) 875 Mg Tb, 875 MG PO BID, #7 TAB Prov:KOBY CARRASCO MD 10/19/24 Reported Medications Docusate Sodium (Docusate Sodium) 100 Mg Cap, 1 CAP PO DAILY 10/13/24 Pantoprazole Sodium Sesquihydr (Pantoprazole Sodium) 40 Mg Tab, 1 TAB PO DAILY 10/13/24 Apixaban Base (ELIQUIS) 5 Mg Tab, 1 TAB PO BID 10/13/24 Gabapentin (Gabapentin) 300 Mg Cap, 3 TAB PO TID 10/13/24 Information Source: Patient Mode of Arrival: Ambulatory Severity: Moderate Timing: Days Duration: Since onset Prehospital treatment: None Location: Back, Chest Mechanism: Spontaneous Onset Wound Type: Other (Vesicles) History of: Immunosuppression Past Medical History PAST MEDICAL HISTORY: Cancer Surgical History: Appendectomy Family History Family History: Reviewed,noncontributory to illness Social History Smoker: Non-Smoker Alcohol: Denies ETOH Use Drugs: Denies Drug Use Lives In: Home Constitutional: denies: chills, diaphoresis, fatigue, fever, malaise, sweats, weakness, others EENTM: denies: blurred vision, double vision, ear bleeding, ear discharge, ear drainage, ear pain, ear ringing, eye pain, eye redness, hearing loss, mouth pain, mouth swelling, nasal discharge, nose bleeding, nose congestion, nose pain, photophobia, tearing, throat pain, throat swelling, voice changes, others Respiratory: denies: cough, hemoptysis, orthopnea, SOB at rest, shortness of breath, SOB with excertion, stridor, wheezing, others Cardiovascular: denies: chest pain, dizzy spells, diaphoresis, Dyspnea on exertion, edema, irregular heart beat, left arm pain, lightheadedness, palpitations, PND, syncope, others Gastrointestinal: denies: abdomen distended, abdominal pain, blood streaked bowels, constipated, diarrhea, dysphagia, difficulty swallowing, hematemesis, m kandace, nausea, poor appetite, poor fluid intake, rectal bleeding, rectal pain, vomiting, others Genitourinary: denies: burning, dysuria, flank pain, frequency, hematuria, incontinence, penile discharge, penile sore, pain, testicle pain, testicle swelling, urgency, others Neurological: denies: dizziness, fainting, headache, left sided numbness, left sided weakness, numbness, paresthesia, pre-existing deficit, right sided numbness, right sided weakness, seizure, speech problems, tingling, tremors, weakness, others Musculoskeletal: denies: back pain, gout, joint pain, joint swelling, muscle pain, muscle stiffness, neck pain, others Integumetry: reports: rash; denies: bruises, change in color, change in hair/nails, dryness, laceration, lesions, lumps, wounds, others Allergic/Immunocompromised: denies: Difficulty Healing, Frequent Infections, Hives, Itching, others Hematologic/Lymphatic: denies: anemia, blood clots, easy bleeding, easy bruising, swollen glands, others Endocrine: denies: excessive hunger, excessive sweating, excessive thirst, excessive urination, flushing, intolerance to cold, intolerance to heat, unexplained weight gain, unexplained weight loss, others Psychiatric: denies: anxiety, bipolar disorder, depression, hopeless, panic disorder, schizophrenia, sleepless, suicidal, others All Other Systems: Reviewed and Negative Physical Exam General Appearance: No Apparent Distress, Normal HEENT: Normal ENT Inspection, Pharynx Normal, TMs Normal Neck: Full Range of Motion, Non-Tender, Normal, Normal Inspection Respiratory: Chest Non-Tender, Lungs Clear, No Accessory Muscle Use, No Respiratory Distress, Normal Breath Sounds Cardiovascular: No Edema, No JVD, No Murmur, No Gallop, Normal Peripheral Pulses, Regular Rate/Rhythm Breast Exam: Deferred Gastrointestinal: No Organomegaly, Non Tender, No Pulsatile Mass, Normal Bowel Sounds, Soft Genitalia: Deferred Pelvic: Deferred Rectal: Deferred Extremities: No calf tenderness, Normal capillary refill, Normal inspection, Normal range of motion, Non-tender, No pedal edema Musculoskeletal : Apperance: Normal Neurologic: Alert, clinical trainer II-XII nml as Tested, No Motor Deficits, Normal Affect, Normal Mood, No Sensory Deficits Cerebellar Function: Normal Reflexes: Normal Skin: Dry, Normal Color, Rash (Left anterior/posterior T5 dermatome vesicular lesions. ), Warm Lymphatic: No Adenopathy Was a procedure done? Was a procedure done?: No Differential Diagnosis (INTG) Differential Diagnosis: Herpes Zoster/Simplex X-Ray, Labs, Meds, VS Vital Signs Date Time Temp Pulse Resp B/P (MAP) Pulse Ox O2 Delivery O2 Flow Rate FiO2 11/14/24 19:36 98.7 101 20 156/96 (116) 97 98.7 X-Ray, Labs, Meds, VS Comment Imaging: X-rays and CT scans were reviewed and interpreted by this provider, imaging shows no fractures and no pathological disease. Pending radiology review. Laboratory: Labs reviewed and interpreted by this provider. No significant abnormalities noted. Patient has prior medical visits reviewed. Med reconciliation performed Vital signs reviewed Time of 1ST Reevaluation: 19:40 Reevaluation 1ST: Unchanged Patient Education/Counseling: Diagnosis, Treatment, Need For Follow Up (Follow up with PCP in the next 2-4 days. Return to the emergency department if symptoms worsen.) Family Education/Counseling: No Family Present SEPSIS Sepsis Screen Vital Signs Date Time Temp Pulse Resp B/P (MAP) Pulse Ox O2 Delivery O2 Flow Rate FiO2 11/14/24 19:36 98.7 101 20 156/96 (116) 97 98.7 Departure 1 Departure Time of Disposition: 20:52 Impression: Primary Impression: Shingles Qualified Codes: B02.9 - Zoster without complications Disposition: HOME / SELF CARE / HOMELESS Condition: Fair e-Prescriptions Valacyclovir Hcl (Valtrex) 1 Gm Tab 1 TAB PO TID for 14 Days, #42 TAB Prov: JEN GONG 11/14/24 Discharged With: Self Critical Care Note Critical Care Time?: No Stability Stability form required: No Heart Score Heart Score: Heart Score Response (Comments) Value History N/A 0 EKG N/A 0 Age N/A 0 Risk Factors N/A 0 Troponin N/A 0 Total 0 I personally scribed for JEN GONG ([email or web address]) on 11/14/24 at 19:36. Electronically submitted by Salty Worthy ([email or web address]). JEN GONG Nov 14, 2024 19:36
[2024-11-14] MEDS ORDERED: VALA1TAB PO (20:52)
== END 2024-11-14 21:00 | disposition home or self-care (01) ==
LOC: ER 19:21
DX: B02.9 Zoster without complications (principal); Z90.49 Acquired absence of other specified parts of digestive tract; Z79.899 Other long term (current) drug therapy

== ENCOUNTER 2025-04-19 05:11 | Inpatient (IN) | payer MEDICAID ==
[2025-04-19] VITALS (17 sets, daily range): BP systolic 118–145; BP diastolic 65–93; PULSE 101–133; RESP 14–21; TEMP 97.4–98.9; O2SAT 93–100
[~2025-04-19] VITALS: Ht 172.7 cm; Wt 89.1 kg
[~2025-04-19 05:11] MED LIST changes: +VALA1TAB PO
--- NOTE | 2025-04-19 06:37 | ED.PDOC ---
SOB-HPI HPI Comments 44 -year-old male with medical history of Burkitt's lymphoma, presents to the ED for chief complaint of shortness a breath associated with the question, runny nose, sore throat, a productive cough in phlegm production the started two days ago. Patient reports he is on oxygen at home although does not know how many L he is at but despite using oxygen at home, so presents with shortness a breath. Patient presented with 92% saturation at room air and was placed on 2 L upon ED arrival increasing saturation to 94%. Patient is currently being treated at [facility] for Burkitt's lymphoma, stated that he had an appointment with provider tomorrow to discuss recent PET scan results, however states shortness a breath worsened today and decided to come in to the ED. Is any chest pain, palpitations, fever, chills, diarrhea, nausea, vomiting. Patient is ambulatory with walker. Chief Complaint: Shortness of Breath Time Seen by MD: 06:14 Primary Care Provider: ASHOK High notes: Nurses Notes, Medications, Allergies Information Source: Patient Mode of Arrival: walker Severity: Moderate Timing: Days (2) Duration: Since onset Context: At Rest PE Risk Factors: None History of: None Modifying Factors: Nothing Associated Signs and Symptoms: Cough, Nasal Congestion, Sore Throat If cough with SOB: Productive Past Medical History PAST MEDICAL HISTORY: Cancer Surgical History: Appendectomy Family History Family History: Reviewed,noncontributory to illness Social History Smoker: Non-Smoker Alcohol: Denies ETOH Use Drugs: Denies Drug Use Lives In: Home Constitutional: denies: chills, diaphoresis, fatigue, fever, malaise, sweats, weakness, others EENTM: reports: nasal discharge, nose congestion, throat pain; denies: blurred vision, double vision, ear bleeding, ear discharge, ear drainage, ear pain, ear ringing, eye pain, eye redness, hearing loss, mouth pain, mouth swelling, nose bleeding, nose pain, photophobia, tearing, throat swelling, voice changes, others Respiratory: reports: cough, SOB at rest, shortness of breath, SOB with excertion; denies: hemoptysis, orthopnea, stridor, wheezing, others Cardiovascular: reports: Dyspnea on exertion; denies: chest pain, dizzy spells, diaphoresis, edema, irregular heart beat, left arm pain, lightheadedness, palpitations, PND, syncope, others Gastrointestinal: denies: abdomen distended, abdominal pain, blood streaked bowels, constipated, diarrhea, dysphagia, difficulty swallowing, hematemesis, melena, nausea, poor appetite, poor fluid intake, rectal bleeding, rectal pain, vomiting, others Genitourinary: denies: burning, dysuria, flank pain, frequency, hematuria, incontinence, penile discharge, penile sore, pain, testicle pain, testicle swelling, urgency, others Neurological: denies: dizziness, fainting, headache, left sided numbness, left sided weakness, numbness, paresthesia, pre-existing deficit, right sided numbness, right sided weakness, seizure, speech problems, tingling, tremors, we akness, others Musculoskeletal: denies: back pain, gout, joint pain, joint swelling, muscle pain, muscle stiffness, neck pain, others Integumetry: denies: bruises, change in color, change in hair/nails, dryness, laceration, lesions, lumps, rash, wounds, others Allergic/Immunocompromised: denies: Difficulty Healing, Frequent Infections, Hives, Itching, others Hematologic/Lymphatic: denies: anemia, blood clots, easy bleeding, easy bruising, swollen glands, others Endocrine: denies: excessive hunger, excessive sweating, excessive thirst, excessive urination, flushing, intolerance to cold, intolerance to heat, unexplained weight gain, unexplained weight loss, others Psychiatric: denies: anxiety, bipolar disorder, depression, hopeless, panic disorder, schizophrenia, sleepless, suicidal, others All Other Systems: Reviewed and Negative Physical Exam General Appearance: Severe Distress HEENT: Normal ENT Inspection, Pharynx Normal, TMs Normal Neck: Full Range of Motion, Non-Tender, Normal, Normal Inspection Respiratory: No Accessory Muscle Use, Respiratory Distress, Wheezing Cardiovascular: Tachycardia Breast Exam: Deferred Gastrointestinal: No Organomegaly, Non Tender, No Pulsatile Mass, Normal Bowel Sounds, Soft Genitalia: Deferred Pelvic: Deferred Rectal: Deferred Extremities: No calf tenderness, Normal capillary refill, Normal inspection, Normal range of motion, Non-tender, No pedal edema Musculoskeletal : Apperance: Normal Neurologic: Alert, car stereo installer II-XII nml as Tested, No Motor Deficits, Normal Affect, Normal Mood, No Sensory Deficits Cerebellar Function: NOT DONE Reflexes: NOT DONE Skin: Dry, Normal Color, Warm Peripheral Pulses: 3+ Radial (R), 3+ Radial (L) Lymphatic: No Adenopathy Was a procedure done? Was a procedure done?: No Differential Dx Differential Diagnosis: Anxiety, Asthma, Bronchitis, CHF, COPD, Hyponatremia, Pneumonia, Pneumothorax, Respiratory Distress, URI X-Ray, Labs, Meds, VS Vital Signs Date Time Temp Pulse Resp B/P (MAP) Pulse Ox O2 Delivery O2 Flow Rate FiO2 04/19/25 06:14 99.1 133 21 130/86 (101) 94 99.1 04/19/25 06:14 133 21 94 Nasal Cannula* 2 28 04/19/25 05:24 99.7 132 18 116/96 92 99.7 Patient alert. Answering questions. Tachycardia. Moving all extremities. Shortness a breath. Placed on oxygen. He had normally is on oxygen. History of Burkitt's lymphoma. Has mild fever. Pneumonia. Sepsis protocol. Explained to the patient. Continue to monitor. Time of 1ST Reevaluation: 06:36 Reevaluation 1ST: Unchanged Patient Education/Counseling: Diagnosis, Treatment, Prognosis Family Education/Counseling: No Family Present SEPSIS Sepsis Screen Date sepsis recognized/suspect: Apr 19, 2025 Time Sepsis recognized/suspect: 623 Recent Procedure: No On Antibiotic Therapy: No Respiratory Rate >20: Yes Heart Rate >90: Yes Temp<36 C (96.8 F) or >38.3 C: No SBP <90 or MAP <65 mmHG: No New Acute Mental Status Change: No Is the patient on CPAP, BIPAP,: No Physician Orders Complete Blood Count (04/19/25 06:22) Comprehensive Metabolic Panel (04/19/25 06:22) PTPTT (04/19/25 06:22) Urinalysis (04/19/25 06:22) Chest Portable (04/19/25 06:22) Accucheck (04/19/25 06:22) Blood Culture (04/19/25 06:22) Lactic Acid W/ Reflex Order (04/19/25 08:00) Lactic Acid W/ Reflex Order (04/19/25 10:00) Cefepime 1gm/50ml (Maxipime 1gm/50ml) (04/19/25 06:30) Notify Md If Map <65 Or Bp<90 (04/19/25 06:22) If Map<65 Start Vasopressor (04/19/25 06:22) Sepsis Reassesment After Fluid (04/19/25 07:22) Sodium Chloride 0.9% (04/19/25 06:30) Sodium Chloride 0.9% (04/19/25 06:30) Azithromycin 500mg/250ml (Zithromax 500m (04/19/25 06:30) Vital Signs Date Time Temp Pulse Resp B/P (MAP) Pulse Ox O2 Delivery O2 Flow Rate FiO2 04/19/25 06:14 99.1 133 21 130/86 (101) 94 99.1 04/19/25 06:14 133 21 94 Nasal Cannula* 2 28 04/19/25 05:24 99.7 132 18 116/96 92 99.7 Departure 1 Departure Time of Disposition: 06:42 Impression: Primary Impression: Acute respiratory failure Qualified Codes: J96.01 - Acute respiratory failure with hypoxia Additional Impressions: Sepsis, unspecified organism Qualified Codes: A41.9 - Sepsis, unspecified organism Left lower lobe pneumonia Qualified Codes: J18.9 - Pneumonia, unspecified organism Disposition: ADMITTED INPATIENT Admit to: Med Surg Condition: Guarded Critical Care Note Critical Care Time?: Yes (90 min-critical care time only) Stability Stability form required: No Heart Score Heart Score: Heart Score Response (Comments) Value History Slightly Suspicious 0 EKG Normal 0 Age >65 2 Risk Factors >3 or Hx ASHD 2 Troponin Normal limit 0 Total 4 I personally scribed for ABISAI DOTSON MD ([email or web address]) on 04/19/25 at 06:37. Electronically submitted by Janette Lott ([facility]). ABISAI DOTSON MD Apr 19, 2025 06:37
[2025-04-19] MEDS: SODIUM CHLORIDE 0.9% 1,000 ML IV ONE ×2 (06:51→09:26)
[2025-04-19] MEDS: AZITHROMYCIN 500MG/250ML 250 ML IV ONE (06:51)
[2025-04-19 07:02] LABS: Hematocrit 45.1 % (41.0-53.0); Hemoglobin 15.6 g/dL (13.5-17.5); Mean Corpuscular Hemoglobin 33.0 pg (28.0-32.0); Mean Corpuscular Volume 95.2 fL (80.0-100.0); Nucleated Red Blood Cells % 0.1 %
[2025-04-19 07:19] LABS: Alanine Aminotransferase 21 U/L (7-40); Albumin 4.5 g/dL (3.2-4.8); Anion Gap 12 (5-15); BUN/Creatinine Ratio 9.8 (10.0-20.0); Bilirubin, Total 0.5 mg/dL (0.2-1.0); Blood Urea Nitrogen 9 mg/dL (9-23); Calcium 9.3 mg/dL (8.7-10.4); Carbon Dioxide 21 mmol/L (20-31); Chloride 106 mmol/L (98-107); Potassium 3.9 mmol/L (3.5-5.1); Sodium 139 mmol/L (136-145); Total Protein 7.3 g/dL (5.7-8.2)
[2025-04-19 07:20] LABS: Alkaline Phosphatase 119 U/L (46-116); Glucose 110 mg/dL (74-106)
[2025-04-19 07:37] LABS: INR 1.03 (0.9-1.15); Partial Thromboplastin Time 31.9 SEC (24.5-34.5); Prothrombin Time 10.9 sec (9.3-11.8)
--- NOTE | 2025-04-19 07:41 | DVH ---
CHEST RADIOGRAPH Indication: sob Technique: Single frontal view of the chest was obtained COMPARISON: XY CHEST PORTABLE on DOS: 10/13/24, XY CHEST PORTABLE on DOS: 05/13/23 FINDINGS: Lines and Tubes: None Lungs: Diffuse increased interstitial prominence Pleura: No effusion.No pneumothorax. Cardiomediastinal contours: Unremarkable Bones: Unremarkable IMPRESSION: Pulmonary vascular congestion versus viral pneumonitis.
[2025-04-19 08:06] LABS: Urine Protein, UAD Negative (Negative)
[2025-04-19] MEDS ORDERED: ACETAMINOPHEN 325 MG TAB PO PRN (08:30)
--- NOTE | 2025-04-19 08:30 | DVHHP2 ---
History of Present Illness Reason for Visit: SOB History of Present Illness Kaiser Bliss is a 44-year-old male with past medical history of Burkitt's lymphoma and appendectomy who presents to the ED with shortness of breath with runny nose, sore throat, and productive green phlegm that started 2 days ago. Patient reports that this morning he woke up choking on his phlegm. Patient reports that he is on home oxygen but does not recall how much he uses. Patient also reports that he is being treated at [facility] on chemo for his lymphoma with an oncologist. He reports that he had a PET scan done last month and was informed that he had some inflammation, reports that he has a colonoscopy planned for tomorrow at [facility]. Patient reports that he is compliant with his medications but does not know all the names of the meds. Patient also reports that he just had his session of chemo last month. He also reports that he had an LP done. Patient reports that he did not receive his flu or COVID vaccine. Patient denies any recent trauma or injury, recent sick contacts, recent travels, recent ingestion of spoiled food, chest pain, fever, chills, lightheadedness, weakness, dizziness, abdominal pain, nausea, vomiting, diarrhea, or urinary symptoms. Patient reports that he lives at home with a sister. Past Medical History Non-Hodgkin's lymphoma Past Surgical History: Appendectomy, Other (Lumbar puncture) Family History: None Smoke: No ALCOHOL: none Drugs: None Lives: with Family Domestic Violence: Neg Review of Systems ENT: Nose discharge, Throat pain Respiratory: Cough, Shortness of breath Allergies: Coded Allergies: NO KNOWN ALLERGIES (Unverified , 02/04/22) Exam Vital Signs Vital Signs Date Time Temp Pulse Resp B/P (MAP) Pulse Ox O2 Delivery O2 Flow Rate FiO2 04/19/25 07:50 98.5 115 21 134/88 (103) 97 98.5 04/19/25 07:50 Nasal Cannula* 2 28 General Appearance: Alert, Oriented X3, Cooperative, No acute distress HEENT: Atraumatic, PERRLA, EOMI Respiratory: Normal air movement Cardiovascular: Normal S1, Normal S2 Abdominal: Normal bowel sounds, Soft Extremities: No clubbing, No cyanosis, No edema Skin: No significant lesion Neuro: Normal gait, Normal speech, Strength at 5/5 X4 ext, Normal tone, Sen sation intact Psych/Mental Status: Mental status NL, Mood NL Labs/Xrays Labs Test 04/19/25 07:30 04/19/25 06:35 Range/Units Urine Color Light-yellow Yellow Urine Clarity Clear Clear Urine pH 6.5 5.0-9.0 Urine Specific [place] 1.020 1.001-1.035 Urine Protein Negative Negative Urine Ketones Negative Negative Urine Blood Negative Negative /uL Urine Nitrite Negative Negative Urine Bilirubin Negative Negative Urine Urobilinogen Normal Negative mg/dL Urine Leukocyte Esterase Negative Negative /uL Urine RBC 5 0 - 3 /hpf Urine Microscopic WBC < 1 0-3 /HPF Urine Squamous Epithelial Cells None seen <5 /hpf Urine Bacteria None seen None Seen /hpf Urine Glucose Normal Normal mg/dL White Blood Count 9.8 4.4-10.8 10^3/uL Red Blood Count 4.74 4.5-5.90 10^6/uL Hemoglobin 15.6 13.5-17.5 g/dL Hematocrit 45.1 41.0-53.0 % Mean Corpuscular Volume 95.2 80.0-100.0 fL Mean Corpuscular Hemoglobin 33.0 H 28.0-32.0 pg Mean Corpuscular Hemoglobin Concent 34.6 32.0-36.0 g/dL Red Cell Distribution Width 13.0 11.8-14.3 % Platelet Count 265 140-450 10^3/uL Mean Platelet Volume 6.4 L 6.9-10.8 fL Neutrophils (%) (Auto) 77.4 37.0-80.0 % Lymphocytes (%) (Auto) 13.1 10.0-50.0 % Monocytes (%) (Auto) 8.2 0.0-12.0 % Eosinophils (%) (Auto) 0.9 0.0-7.0 % Basophils (%) (Auto) 0.4 0.0-2.0 % Neutrophils # (Auto) 7.5 1.6-8.6 10 ^3/uL Lymphocytes # (Auto) 1.3 0.4-5.4 10 ^3/uL Monocytes # (Auto) 0.8 0-1.3 10 ^3/uL Eosinophils # (Auto) 0.1 0-0.8 10 ^3/uL Basophils # (Auto) 0 0-0.2 10 ^3/uL Nucleated Red Blood Cells 0.1 % Prothrombin Time 10.9 9.3-11.8 sec Prothrombin Time INR 1.03 0.9-1.15 Activated Partial Thromboplast Time 31.9 24.5-34.5 SEC Sodium Level 139 136-145 mmol/L Potassium Level 3.9 3.5-5.1 mmol/L Chloride Level 106 98-107 mmol/L Carbon Dioxide Level 21 20-31 mmol/L Anion Gap 12 5-15 Blood Urea Nitrogen 9 9-23 mg/dL Creatinine 0.92 0.700-1.30 mg/dL Glomerular Filtration Rate Calc 104 >90 mL/min BUN/Creatinine Ratio 9.8 L 10.0-20.0 Serum Glucose 110 H 74-106 mg/dL Lactic Acid Level 1.5 0.4-2.0 mmol/L Calcium Level 9.3 8.7-10.4 mg/dL Total Bilirubin 0.5 0.2-1.0 mg/dL Aspartate Amino Transferase (AST) 17 13-40 U/L Alanine Aminotransferase (ALT) 21 7-40 U/L Alkaline Phosphatase 119 H 46-116 U/L Total Protein 7.3 5.7-8.2 g/dL Albumin 4.5 3.2-4.8 g/dL CHEST RADIOGRAPH Indication: sob Technique: Single frontal view of the chest was obtained COMPARISON: XY CHEST PORTABLE on DOS: 10/13/24, XY CHEST PORTABLE on DOS: 05/13/23 FINDINGS: Lines and Tubes: None Lungs: Diffuse increased interstitial prominence Pleura: No effusion.No pneumothorax. Cardiomediastinal contours: Unremarkable Bones: Unremarkable IMPRESSION: Pulmonary vascular congestion versus viral pneumonitis. SEPSIS Sepsis Screen Date sepsis recognized/suspect: Apr 19, 2025 Time Sepsis recognized/suspect: 0750 Recent Procedure: No On Antibiotic Therapy: Yes Respiratory Rate >20: Yes Heart Rate >90: Yes Temp<36 C (96.8 F) or >38.3 C: No SBP <90 or MAP <65 mmHG: No New Acute Mental Status Change: No Is the patient on CPAP, BIPAP,: No Physician Orders Chest Portable (04/19/25 06:22) Accucheck (04/19/25 06:22) Blood Culture (04/19/25 06:22) Lactic Acid W/ Reflex Order (04/19/25 10:00) Cefepime 1gm/50ml (Maxipime 1gm/50ml) (04/19/25 06:30) Notify Md If Map <65 Or Bp<90 (04/19/25 06:22) If Map<65 Start Vasopressor (04/19/25 06:22) Sepsis Reassesment After Fluid (04/19/25 07:22) Sodium Chloride 0.9% (04/19/25 06:30) Azithromycin 500mg/250ml (Zithromax 500m (04/19/25 06:30) Vital Signs Date Time Temp Pulse Resp B/P (MAP) Pulse Ox O2 Delivery O2 Flow Rate FiO2 04/19/25 07:50 98.5 115 21 134/88 (103) 97 98.5 04/19/25 07:50 115 21 97 Nasal Cannula* 2 28 04/19/25 06:14 99.1 133 21 130/86 (101) 94 99.1 04/19/25 06:14 133 21 94 Nasal Cannula* 2 28 04/19/25 05:24 99.7 132 18 116/96 92 99.7 Laboratory Tests Test 04/19/25 06:35 Lactic Acid Level 1.5 mmol/L (0.4-2.0) White Blood Count 9.8 10^3/uL (4.4-10.8) Medications Medications Dose Ordered Sig/Annalisa Route Start Time Stop Time Status Last Admin Dose Admin Azithromycin 250 ml @ 125 mls/hr ONCE ONCE IV 04/19/25 06:30 04/19/25 08:29 04/19/25 06:51 125 MLS/HR Sodium Chloride 1,000 ml @ 1,000 mls/hr Q1H ONCE IV 04/19/25 06:30 04/19/25 07:29 DC 04/19/25 06:51 1,000 MLS/HR Assessment/Plan Assessment/Plan Assessment Acute hypoxic respiratory failure on supplemental oxygen Pulmonary vascular congestion versus viral/bacterial pneumonitis SIRS versus sepsis History of non-Hodgkin's Lymphoma on chemo at [facility] in [place] History of appendectomy Plan Admit to med [facility] Antiemetics Pain management IV antibiotics-ceftriaxone + azithromycin Cefepime given in ED UA Chest x-ray NS 2 L given ED Lactic level Blood cultures PT/PTT UA UDS D-dimer Flu test Strep test COVID test IV fluids Diet Home medications reconciled DVT prophylaxis-SCDs PUD prophylaxis-PPIs Discussed plan of care with patient and nurse [id number] Preventive counseling healthy eating habits, physical activity, and regular checkups Plan discussed with: Patient Date of Service: Apr 19, 2025 Billing Provider: DAVID CHINO Common Visit Codes: [id number] INP/OBS CARE (HIGH) Secondary Visit Codes: [id number] COUNSELING IND DAVID CHINO Apr 19, 2025 08:30
[2025-04-19] MEDS: IPRATROPIUM BROM 0.5 MG/2.5ML INH SOL NEB SCH (09:34)
[2025-04-19] MEDS: ALBUTEROL SULF 2.5 MG/0.5ML(0.5%) NEB SOLN NEB SCH (09:34)
[2025-04-19 09:42] LABS: Amphetamine Screen, Urine Pos (NEGATIVE); Barbiturate Scree,Urine Neg (NEGATIVE); Benzodiazephine Screen, Urine Neg (NEGATIVE); Cannabinoid Screen, Urine Neg (NEGATIVE); Cocaine Screen, Urine Neg (NEGATIVE); Opiate Scree,Urine Neg (NEGATIVE); Phencyclidine Screen, Urine Neg (NEGATIVE)
[2025-04-19 09:45] LABS: COVID19 ANTIGEN SOFIA FIA NEGATIVE (NEGATIVE)
[2025-04-19] MEDS: SODIUM CHLORIDE 0.9% 1,000 ML IV SCH (10:00)
[2025-04-19] MEDS: CEFEPIME 1GM/50ML 50 ML IV ONE (10:47)
[2025-04-19] MEDS ORDERED: OXYC-900 PO (11:07)
[2025-04-19] MEDS ORDERED: PREG150C PO (11:07)
[2025-04-19] MEDS ORDERED: GABA-1250 PO (11:07)
[2025-04-19] MEDS ORDERED: SULF400T11 PO (11:07)
[2025-04-19] MEDS ORDERED: BICT1TAB PO (11:07)
[2025-04-19 14:39] LABS: Rapid Strep A Screen-Throat Positive
[2025-04-19] MEDS: HYDROcodone-ACET 5/325MG TAB PO PRN (21:39)
[2025-04-20] VITALS (15 sets, daily range): BP systolic 115–159; BP diastolic 75–91; PULSE 102–137; RESP 18–20; TEMP 98–99.3; O2SAT 86–99
[2025-04-20] MEDS: PANTOPRAZOLE 40 MG TAB PO SCH (05:35)
[2025-04-20 05:40] LABS: Hematocrit 47.2 % (41.0-53.0); Hemoglobin 16.3 g/dL (13.5-17.5); Mean Corpuscular Hemoglobin 32.5 pg (28.0-32.0); Mean Corpuscular Volume 94.1 fL (80.0-100.0); Nucleated Red Blood Cells % 0.1 %
[2025-04-20 06:03] LABS: Alanine Aminotransferase 25 U/L (7-40); Anion Gap 11 (5-15); Calcium 9.4 mg/dL (8.7-10.4); Carbon Dioxide 26 mmol/L (20-31); Chloride 101 mmol/L (98-107); Glucose 99 mg/dL (74-106); Potassium 3.9 mmol/L (3.5-5.1); Sodium 138 mmol/L (136-145); Total Protein 7.5 g/dL (5.7-8.2)
[2025-04-20 06:04] LABS: Albumin 4.7 g/dL (3.2-4.8); BUN/Creatinine Ratio 10.4 (10.0-20.0); Bilirubin, Total 0.8 mg/dL (0.2-1.0); Blood Urea Nitrogen 10 mg/dL (9-23)
[2025-04-20 06:07] LABS: Alkaline Phosphatase 117 U/L (46-116)
[2025-04-20] MEDS: AZITHROMYCIN 500MG/250ML 250 ML IV SCH (10:56)
[2025-04-20] MEDS: ENOXAPARIN SOD 40 MG/0.4 ML SYRINGE SC SCH (10:57)
[2025-04-20] MEDS: ONDANSETRON HCL 4 MG/2 ML VIAL IV PRN (10:58)
[2025-04-20] MEDS: PIPERACILLIN-TAZO 4.5GM 100 ML IV ONE (11:25)
--- NOTE | 2025-04-20 14:43 | DVHPNRES ---
Progress Note Date Seen: Apr 20, 2025 Resident Creating Document: SHADI BLEVINS RESIDENT Medical Necessity Reason Pt with a Central, PICC or Fol: No Subjective Review of Systems Kasier Bliss 44-year-old man with past medical history of Burkitt's lymphoma who presented to the ED with the chief complaint of shortness of breath. The patient mentioned he started developing shortness of breath with a runny nose, sore throat and productive cough that started 2 days ago. He reports that yesterday morning he woke up choking on his phlegm. He mentions he uses home oxygen 2 L. The patient mentions he finished his chemotherapy sessions in September 2024, post which a PET-CT showed metastasis to his abdomen for which he was scheduled for colonoscopy today at [facility]. He also mentions seeing blood in his stool every time he has a bowel movement since 6 months. Patient mentions having a burning sensation in his chest. He denies having any fevers or recent sick contacts or recent travel. Bedside ultrasound was done and IVC was 2.5 cm, less than 50% collapsible. Due to increased WBCs and tachycardia, patient was given 500 cc bolus of NS and will be re-evaluated post that. Past medical history: Burkitt's lymphoma Past surgical history: Appendectomy Social & Personal history: Lives at home with sister, denies smoking, alcohol and drugs Allergies: No known allergies Patient seen and examined at bedside. Patient is alert and oriented to time, place person and responding to all questions. Eyes: No Pain, No Vision change, No Conjunctivae inflammation, No Eyelid inflammation, No Redness ENT: No Ear pain, No Ear discharge, No Nose pain, No Nose discharge, No Nose congestion, No Mouth pain, No Mouth swelling, Throat pain, No Throat swelling Cardiovascular: No Chest Pain, No Palpitations, No Orthopnea, No Paroxysmal No Dyspnea, No Edema, No Lt Headedness Respiratory: Cough, No Dry, Shortness of breath, No SOB with exertion, No Wheezing, No Hemoptysis, No Pleuritic Pain, No Sputum Gastrointestinal: No Nausea, No Vomiting, No Abdominal Pain, No Diarrhea, No Constipation, No Melena, No Hematochezia Genitourinary: No Dysuria, No Frequency, No Incontinence, No Hematuria, No Retention Objective vital signs Vital Sign Date Time Temp Pulse Resp B/P (MAP) Pulse Ox O2 Delivery O2 Flow Rate FiO2 04/20/25 12:48 98.7 122 19 117/75 (89) 92 98.7 04/20/25 10:49 Room Air* 0 N/A Nasal Cannula* Total Intake and Output 04/19/25 04/19/25 04/20/25 15:00 23:00 07:00 Intake Total 500 ml 240 ml Balance 500 ml 240 ml medications Current Medications Medications Dose Ordered Sig/Annalisa Route Start Time Stop Time Status Last Admin Dose Admin Azithromycin 250 ml @ 125 mls/hr DAILY IV 04/20/25 10:00 04/20/25 10:56 125 MLS/HR Albuterol 2.5 mg Q4HWA NEB 04/19/25 10:00 04/20/25 10:49 2.5 MG Ipratropium [place] 0.5 mg Q4HWA NEB 04/19/25 10:00 04/20/25 10:49 0.5 MG Ondansetron HCl 4 mg Q4HP PRN IV 04/19/25 08:30 04/20/25 10:58 4 MG Acetaminophen 650 mg Q6HP PRN PO 04/19/25 08:30 Acetaminophen/ Hydrocodone Bitart 1 tab Q6HPRN PRN PO 04/19/25 21:30 04/19/25 21:39 1 TAB Pantoprazole Sodium 40 mg DAILY PO 04/20/25 06:00 04/20/25 10:56 40 MG Enoxaparin Sodium 40 mg DAILY SC 04/20/25 10:00 04/20/25 10:57 40 MG Piperacillin Sod/ Tazobactam Sod 100 ml @ 25 mls/hr Q8HR@0200,1000,1800 IV 04/20/25 18:00 Examination General Appearance: Cooperative. Well developed. Well nourished. NAD Head Exam: Normal inspection Neck Exam: Normal inspection. Non-tender. Normal alignment Pulmonary/Respiratory: Chest non-tender. Clear bilateral breath sounds, no crackles, no wheezing. Cardiovascular/Chest: Regular rate and rhythm. No murmurs. No JVD. Peripheral Pulses: 2+ Radial (R). 2+ Radial (L). 2+ Pedal (R). 2+ Pedal (L) Abdominal Exam: Normal bowel sounds. Soft. normal abdomen, no visible veins, Nontender. No hepatospenomegaly. No masses Ankle Exam: Negative ankle edema Lower extremities: Negative lower extremity edema Neuro/Mental Status: A&O x4. Coherent. Thoughts/Psych: Normal thought pattern. Appropriate mood and affect. Good judgement and insight Skin Exam: Normal inspection. Normal color. Warm. Dry laboratory and microbiology Laboratory Tests 04/20/25 05:05 Test 04/20/25 05:05 Range/Units Serum Glucose 99 74-106 mg/dL Microbiology Date/Time Source Procedure Growth Status 04/19/25 06:45 Blood Blood Culture - Preliminary NO GROWTH AFTER 24 HOURS OF INCUBATION. Resulted Labs and/or images reviewed: Labs reviewed by me, Image(s) reviewed by me Problem List/Assessment/Plan Problem List/Assessment/Plan # Acute hypoxic respiratory failure # SIRS, possibly due to below # Acute community-acquired pneumonia, viral/bacterial # Group a strep pharyngitis - chest x-ray showed - Pulmonary vascular congestion versus viral pneumonitis - ordered MRSA screen, pending - mednebs Q 4 hours p.r.n. - CRP 8.1, ESR 20 - blood culture ordered - azithromycin and Zosyn - bedside ultrasound showed IVC 2.5 cm, less than 50% collapsible, given 500 cc bolus, re-evaluate after that # Acute chest discomfort, rule out ACS - EKG ordered - echo ordered # History of Burkitt's lymphoma - finished chemotherapy session at [facility] # Substance abuse - urine positive for amphetamines - the patient counseled about cessation for more than 10 minutes PUD prophylaxis: Protonix 40 mg p.o. daily DVT prophylaxis: Lovenox 40 mg SC daily Goals of care: DNR/DNI, discussed for >16 minutes Plan discussed with patient Plan discussed with Dr. Jaquez Plan discussed with: Patient, Other My Orders My Orders Orders - SHADI BLEVINS RESIDENT Procedure Category Date Status Time Enoxaparin Sodium PHA 04/20/25 In Process (Lovenox) 10:00 Echo 2d Mode Cardiac US 04/20/25 Logged DOP 09:37 Code Status CODE 04/20/25 Transmitted 14:19 Date of Service: Apr 20, 2025 Billing Provider: GRECIA JAQUEZ MD Common Visit Codes: [id number] INP/OBS CARE(HIGH) SHADI BLEVINS RESIDENT Apr 20, 2025 14:43
[2025-04-20] MEDS: PANTOPRAZOLE 40 MG/10 ML VIAL INJ IV ONE (17:48)
[2025-04-20] MEDS: PIPERACILLIN-TAZOB 3.375GM 100 ML IV SCH (17:49)
[2025-04-20] MEDS ORDERED: PREGABALIN 25 MG CAP PO ONE (18:00)
[2025-04-20] MEDS ORDERED: MORPHINE SULFATE INJ 2 MG/ml SYRG IV PRN (18:15)
[2025-04-20] MEDS ORDERED: SODIUM CHLORIDE 0.9% 500 ML IV ONE (18:15)
[2025-04-20] MEDS ORDERED: PREGABALIN 25 MG CAP PO SCH (22:00)
--- NOTE | 2025-04-21 10:47 | ECG ---
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
--- NOTE | 2025-04-21 12:30 | ECG ---
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
--- NOTE | 2025-04-22 17:26 | DVHDSRES ---
Discharge Summary Date of Admission Resident Creating Document: SHADI BLEVINS RESIDENT Apr 19, 2025 at 08:27 Date of Discharge: Apr 20, 2025 Admitting Diagnosis Acute hypoxic respiratory failure Labs/Diagnostic Data: Laboratory Results Test 04/20/25 05:05 04/19/25 13:50 04/19/25 09:00 04/19/25 08:39 White Blood Count 14.9 10^3/uL (4.4-10.8) Red Blood Count 5.02 10^6/uL (4.5-5.90) Hemoglobin 16.3 g/dL (13.5-17.5) Hematocrit 47.2 % (41.0-53.0) Mean Corpuscular Volume 94.1 fL (80.0-100.0) Mean Corpuscular Hemoglobin 32.5 pg (28.0-32.0) Mean Corpuscular Hemoglobin Concent 34.6 g/dL (32.0-36.0) Red Cell Distribution Width 13.1 % (11.8-14.3) Platelet Count 275 10^3/uL (140-450) Mean Platelet Volume 6.5 fL (6.9-10.8) Neutrophils (%) (Auto) 79.6 % (37.0-80.0) Lymphocytes (%) (Auto) 11.6 % (10.0-50.0) Monocytes (%) (Auto) 8.4 % (0.0-12.0) Eosinophils (%) (Auto) 0.3 % (0.0-7.0) Basophils (%) (Auto) 0.1 % (0.0-2.0) Neutrophils # (Auto) 11.9 10 ^3/uL (1.6-8.6) Lymphocytes # (Auto) 1.7 10 ^3/uL (0.4-5.4) Monocytes # (Auto) 1.3 10 ^3/uL (0-1.3) Eosinophils # (Auto) 0 10 ^3/uL (0-0.8) Basophils # (Auto) 0 10 ^3/uL (0-0.2) Nucleated Red Blood Cells 0.1 % Erythrocyte Sedimentation Rate 20 mm/hr (0-20) Sodium Level 138 mmol/L (136-145) Potassium Level 3.9 mmol/L (3.5-5.1) Chloride Level 101 mmol/L (98-107) Carbon Dioxide Level 26 mmol/L (20-31) Anion Gap 11 (5-15) Blood Urea Nitrogen 10 mg/dL (9-23) Creatinine 0.96 mg/dL (0.700-1.30) Glomerular Filtration Rate Calc 99 mL/min (>90) BUN/Creatinine Ratio 10.4 (10.0-20.0) Serum Glucose 99 mg/dL (74-106) Calcium Level 9.4 mg/dL (8.7-10.4) Total Bilirubin 0.8 mg/dL (0.2-1.0) Aspartate Amino Transferase (AST) 27 U/L (13-40) Alanine Aminotransferase (ALT) 25 U/L (7-40) Alkaline Phosphatase 117 U/L (46-116) C-Reactive Protein High Sensitivity 8.10 mg/dL (<1.0) Total Protein 7.5 g/dL (5.7-8.2) Albumin 4.7 g/dL (3.2-4.8) Group A Streptococcus Rapid Positive Influenza Type A Antigen Negative (Negative) Influenza Type B Antigen Negative (Negative) SARS-CoV-2 Antigen (Rapid) Negative (NEGATIVE) Lactic Acid Level 1.1 mmol/L (0.4-2.0) Test 04/19/25 07:30 04/19/25 06:35 Urine Color Light-yellow (Yellow) Urine Clarity Clear (Clear) Urine pH 6.5 (5.0-9.0) Urine Specific [place] 1.020 (1.001-1.035) Urine Protein Negative (Negative) Urine Ketones Negative (Negative) Urine Blood Negative /uL (Negative) Urine Nitrite Negative (Negative) Urine Bilirubin Negative (Negative) Urine Urobilinogen Normal mg/dL (Negative) Urine Leukocyte Esterase Negative /uL (Negative) Urine RBC 5 /hpf (0 - 3) Urine Microscopic WBC < 1 /HPF (0-3) Urine Squamous Epithelial Cells None seen /hpf (<5) Urine Bacteria None seen /hpf (None Seen) Urine Glucose Normal mg/dL (Normal) Urine Opiates Screen Neg (NEGATIVE) Urine Fentanyl Screen Neg (NEGATIVE) Urine Barbiturates Screen Neg (NEGATIVE) Urine Phencyclidine Screen Neg (NEGATIVE) Urine Amphetamines Screen Pos (NEGATIVE) Urine Benzodiazepines Screen Neg (NEGATIVE) Urine Cocaine Screen Neg (NEGATIVE) Urine Cannabinoids Screen Neg (NEGATIVE) Prothrombin Time 10.9 sec (9.3-11.8) Prothrombin Time INR 1.03 (0.9-1.15) Activated Partial Thromboplast Time 31.9 SEC (24.5-34.5) D-Dimer, Quantitative 0.37 mg/L FEU (0.0-0.49) Other Laboratory Tests 04/20/25 05:05 Brief Hx & Hospital Course: Kaiser Bliss 44-year-old man with past medical history of Burkitt's lymphoma who presented to the ED with the chief complaint of shortness of breath. The patient mentioned he started developing shortness of breath with a runny nose, sore throat and productive cough that started 2 days ago. He reported that yesterday morning he woke up choking on his phlegm. He mentioned he uses home oxygen 2 L. The patient mentioned he finished his chemotherapy sessions in September 2024, post which a PET-CT showed metastasis to his abdomen for which he was scheduled for colonoscopy today at [facility]. He also mentioned seeing blood in his stool every time he has a bowel movement since 6 months. Patient mentions having a burning sensation in his chest. He denies having any fevers or recent sick contacts or recent travel. Started on azithromycin and Zosyn with med nebs p.r.n. Bedside ultrasound was done and IVC was 2.5 cm, less than 50% collapsible. Due to increased WBCs and tachycardia, patient was given 500 cc bolus of NS and will be re-evaluated post that. Occult blood was ordered, pending. Echo was ordered, which was pending. The patient was given Zofran and Protonix for the burning sensation in his chest. Patient mentioned he wants to leave AMA to go to [facility], he was encouraged to stay for further treatment, but he refused and left AMA. Past medical history: Burkitt's lymphoma Past surgical history: Appendectomy Social & Personal history: Lives at home with sister, denies smoking, alcohol and drugs Allergies: No known allergies Physical examination could not be completed as the patient left AMA. Operations or Procedures PROCEDURE(s): CXRP - CHEST PORTABLE REASON: sob ORDER NUMBER(s): [id number], ACCESSION NUMBER(s): [id number] CHEST RADIOGRAPH Indication: sob Technique: Single frontal view of the chest was obtained COMPARISON: XY CHEST PORTABLE on DOS: 10/13/24, XY CHEST PORTABLE on DOS: 05/13/23 FINDINGS: Lines and Tubes: None Lungs: Diffuse increased interstitial prominence Pleura: No effusion.No pneumothorax. Cardiomediastinal contours: Unremarkable Bones: Unremarkable IMPRESSION: Pulmonary vascular congestion versus viral pneumonitis. Condition at Discharge: Undetermined Final Diagnosis/Problems List Acute hypoxic respiratory failure SIRS, possibly due to below Acute community-acquired pneumonia, likely bacterial Group a strep pharyngitis Acute chest discomfort, possible ACS History of Burkitt's lymphoma Substance abuse Discharge Disposition: AMA Discharge Instruct/Medications Scheduled Amoxicillin & Pot Clavulanate (Augmentin Tablet), 875 MG PO BID Apixaban Base (Eliquis), 1 TAB PO BID, (Reported) Umexyqdjncx-Agwsbzhnhrbbi-Upwh (Biktarvy 50-200-25 mg), 1 TAB PO DAILY, (Reported) Docusate Sodium (Docusate Sodium), 1 CAP PO DAILY, (Reported) Gabapentin (Gabapentin), 3 TAB PO TID, (Reported) Gabapentin (Gabapentin), 900 MG PO QID, (Reported) Oxycodone HCl (Oxycodone Hydrochloride), 5 MG PO BID, (Reported) Pantoprazole Sodium Sesquihydr (Pantoprazole Sodium), 1 TAB PO DAILY, (Reported) Pregabalin (Lyrica), 1 CAP PO TID, (Reported) Sulfamethoxazole-Trimethoprim (Bactrim), 1 TAB PO 2XW, (Reported) Valacyclovir Hcl (Valtrex), 1 TAB PO TID Scheduled PRN Morphine Sulfate (Morphine Sulfate Er), 15 MG PO Q12HR PRN Discharge Statement: "Patient was advised to return to the ER or call 911 if any headaches, dizziness, shortness of breath, chest pain, abdominal pain, bleeding, fevers, or worsening of medical condition. Patient was counseled about treatment plan, medications, possible side effects, patientverbalized understanding. All questions were answered to the best of my ability. This discharge took greater then 30 minutes in planning, reviewing documentation, counseling the patient, and discussing with other team members." ASSESSMENT ASSESSMENT Assessment Date of Service: Apr 20, 2025 Billing Provider: GRECIA RAMOS MD Common Visit Codes: 18174-SLE/OBS DISCH DAY >30min SHADI BLEVINS RESIDENT Apr 22, 2025 17:26 GRECIA RAMOS MD Apr 22, 2025 23:20
== END 2025-04-20 19:10 | disposition left against medical advice (07) | DRG 133 ==
LOC: ER 05:11 → OVERFLOW 08:27 → WEST WING 10:22 → CENTRAL 22:13
DX: J96.01 Acute respiratory failure with hypoxia (principal); J15.8 Pneumonia due to other specified bacteria; I24.9 Acute ischemic heart disease, unspecified; J12.9 Viral pneumonia, unspecified; C85.90 Non-Hodgkin lymphoma, unspecified, unspecified site; J02.0 Streptococcal pharyngitis; R65.10 Systemic inflammatory response syndrome (SIRS) of non-infectious origin without acute organ dysfunction; F19.10 Other psychoactive substance abuse, uncomplicated; Z53.29 Procedure and treatment not carried out because of patient's decision for other reasons; J98.4 Other disorders of lung; Z90.49 Acquired absence of other specified parts of digestive tract; Z28.310 Unvaccinated for COVID-19
CPT/HCPCS: 36415; 71045; 80053; 80307; 81001; 83605; 85025; 85379; 85610; 85652; 85730; 86141; 87040; 87426; 87804; 87880; 93005; 94640; 96365; 96366; 96367; 99291; 99292; G0378; J2405; J2470; J2543